=== PATIENT | male | born 1960 | race Caucasian/White ===

== ENCOUNTER 2023-05-14 16:14 | Outpatient (REF) | payer BC, SELFPAY ==
[2023-05-14 17:39] LABS: MANUAL DIFF FLAG NO
[2023-05-14 17:44] LABS: Appearance Urine Clear; Color Urine Yellow; Glucose Urine UA Negative (Negative); Leukocyte Esterase Urine Negative (Negative); Nitrite Urine Negative (Negative); PH 6.5 (5.0-9.0); Urine Blood Negative (Negative); Urine Ketones Negative (Negative); Urine Protein Negative (Neg-Trace)
[2023-05-14 17:49] LABS: Estimated Average Glucose 154 mg/dL
[2023-05-14 18:02] LABS: Basophils Percent Auto 0.5 % (0-2); Eosinophils Absolute Auto 0.1 X10*3/uL (0.0-0.4); Eosinophils Percent Auto 1.2 % (0-4); Hematocrit 46.4 % (42.0-52.0); Hemoglobin 15.9 g/dl (14.0-18.0); Imm Gran Abs Auto 0.13 X10*3/uL (0.00-0.03); Imm Gran Pct Auto 1.6 % (0.0-0.4); Lymphocytes Percent Auto 24.1 % (20-40); Mean Corpuscular HGB Conc 34.3 g/dl (31.0-36.0); Mean Corpuscular Hemoglobin 31.2 pg (27.0-33.0); Mean Corpuscular Volume 91.2 fL (80.0-98.0); Monocytes Absolute Auto 0.7 X10*3/uL (0.1-1.2); Monocytes Percent Auto 8.3 % (2-11); Neutrophils Absolute Auto 5.3 x10*3/uL (2.0-8.3); Neutrophils Percent Auto 64.3 % (45-73); Platelet Count 227 X10*3/uL (160-400); Red Blood Count 5.09 X10*6/uL (4.60-5.80); White Blood Count 8.2 X10*3/uL (4.8-10.8)
[2023-05-14 18:22] LABS: Creatinine Urine 76.95 mg/dL; Microalbum/Creatinine Ratio Ur 12.9 ug/mg cr (<30)
[2023-05-14 18:28] LABS: Alanine Aminotransferase 28 U/L (0-40); Albumin Level 4.1 g/dL (3.5-5.0); Alkaline Phosphatase 56 U/L (39-117); Anion Gap 12 (12-20); Aspartate Amino Transferase 28 U/L (5-37); Bilirubin Total 0.7 mg/dL (0.0-1.0); Blood Urea Nitrogen 19 mg/dL (9-16); Calcium 9.1 mg/dL (8.4-10.2); Carbon Dioxide 28 mmol/L (22-29); Chloride 105 mmol/L (96-108); Cholesterol 165 mg/dL (<200); Estimated Glomerular Filt Rate > 60; Glucose Fasting 98 mg/dL (60-99); HDL Cholesterol 36 mg/dL (>40); LDL Cholesterol Calculated 105 mg/dL (<100); Potassium 3.7 mmol/L (3.3-5.1); Sodium 141 mmol/L (135-145); Total Protein 6.7 g/dL (6.5-8.0); Triglycerides 122 mg/dL (<150)
[2023-05-14 18:43] LABS: Free T4 (Free Thyroxine) 0.92 ng/dL (0.71-1.85); Prostate Specific Antigen 4.08 ng/mL (<0.05-4.0); Thyroid Stimulating Hormone 11.02 uIU/mL (0.32-4.0)
== END 2023-05-14 16:15 | disposition home or self-care (01) ==
LOC: HO.CHCLDS 16:14
PROVIDERS: Visit Provider Internal Medicine
DX: Z12.5 Encounter for screening for malignant neoplasm of prostate (principal); E11.9 Type 2 diabetes mellitus without complications; I10 Essential (primary) hypertension; E03.9 Hypothyroidism, unspecified; N40.0 Benign prostatic hyperplasia without lower urinary tract symptoms
CPT/HCPCS: 36415; 80053; 80061; 81003; 82043; 82570; 83036; 84153; 84439; 84443; 85025

== ENCOUNTER 2023-07-20 09:05 | Observation (INO) | payer BC, SELFPAY ==
--- NOTE | ~2023-07-20 | CT_ITS ---
EXAMINATION: CT ANGIOGRAM HEAD CT ANGIOGRAM NECK CLINICAL INFORMATION: Dizziness. Slurred speech. COMPARISON: None available. TECHNIQUE: Initial noncontrast procurement professional logistics imaging of the head and neck was performed. Noncontrast head CT was also performed. Test bolus sequences followed by intravenous administration 70 mL of Omnipaque 350. Helical imaging was performed in the axial plane from the aortic arch to the skull vertex. Delayed postcontrast imaging of the head was also performed. The data was processed at the research technologist's workstation for generation of MIP sequences. Angled MIPs and volume rendered reformatted images were also generated at an offline 3D workstation. Stenoses are assessed in accordance with NASCET criteria unless otherwise indicated. This CT examination was performed using dose optimization techniques as appropriate, variously including the following: *Automated exposure control. *Adjustment of mA and/or kV according to patient size (this includes techniques or standardized protocols for targeted exams where dose is matched to indication/reason for exam; i.e. extremities or head). *Use of iterative reconstruction technique. DLP: 2498 mGy-cm FINDINGS: CT Head: There is no evidence of acute intracranial hemorrhage or edematous territorial infarction. Cowan-white matter differentiation is preserved. A few foci of hypoattenuation in the periventricular and deep white matter are consistent with mild microangiopathy. The ventricles are normal in morphology and size. No evidence for obstructive hydrocephalus. No abnormal mass effect or midline shift. No extra-axial fluid collections. No pathologic intra-axial enhancement. No acute soft tissue or osseous abnormalities. Mild mucosal thickening of the paranasal sinuses. The mastoid air cells and middle ear cavities are clear. CT Neck: There is a 3.4 cm heterogeneous nodule in the left thyroid lobe. The remaining cervical soft tissues are within normal limits. Congenital fusion of T3-T4. Reversal the normal cervical lordosis centered on C5-C6. Mild degenerative stepwise anterolistheses of C3-C6. Ankylosis of the left-sided C4-C5 facets. Straightening of the normal thoracic kyphosis. Moderate degenerative arthropathy of the atlantodental articulation. Facet and uncovertebral joint arthropathy leads to osseous encroachment on the neural foramina from C2-T1. CT Upper Chest: The visualized lung apices and upper mediastinum are within normal limits. Neck CTA: Aortic Arch: Normal contour and caliber with moderate calcific atherosclerotic disease. Classic 3 vessel branching pattern of the aortic arch. Great Vessel Origins: No significant stenosis of the branch origins. Right Common Carotid Artery: No focal stenosis or occlusion. Cervical Right Internal Carotid Artery: Mild calcific atherosclerotic disease of the carotid bulb and proximal internal carotid artery without flow-limiting stenosis. Left Common Carotid Artery: No focal stenosis or occlusion. Cervical Left Internal Carotid Artery: Calcific atherosclerotic disease of the carotid bulb and proximal internal carotid artery causing less than 50% stenosis. Cervical Right Vertebral Artery: No focal stenosis or occlusion. Cervical Left Vertebral Artery: Dominant. Mixed lipid rich and calcific atherosclerotic disease causes mild to moderate stenosis of the origin. No additional focal stenosis or occlusion. Brain CTA: Intracranial Internal Carotid Arteries: Calcific atherosclerotic disease of the intracranial internal carotid arteries without occlusion or flow-limiting stenosis. Right Anterior Cerebral Artery: The A1 segment is diminutive. Normal opacification of the distal QUINTON segments. Left Anterior Cerebral Artery: Normal A1 segment. Normal opacification of the distal QUINTON segments. Anterior Communicating Artery: Normal. Right Middle Cerebral Artery: Normal M1 segment of the MCA without focal stenosis or occlusion. Normal arborization of the distal segments. Left Middle Cerebral Artery: Normal M1 segment of the MCA without focal stenosis or occlusion. Normal arborization of the distal segments. Right Vertebral Artery: The V4 segment largely terminates as the posterior inferior cerebellar artery. Left Vertebral Artery: Normal V4 segment. Normal opacification of the proximal segments of the posterior inferior cerebellar artery. Basilar Artery: Normal without focal stenosis or occlusion. Normal appearance of the proximal superior cerebellar arteries. Right Posterior Cerebral Artery: Normal P1 segment. Normal opacification of the distal AOC DIRECTOR INTELLIGENCE OFFICER segments. Left Posterior Cerebral Artery: Normal P1 segment. Normal opacification of the distal AOC DIRECTOR INTELLIGENCE OFFICER segments. Normal opacification of the superior sagittal, straight, transverse, and sigmoid sinuses. CT/CT angio head neck stroke IMPRESSION: 1. No evidence of acute intracranial hemorrhage or edematous territorial infarction. Mild underlying microangiopathy. 2. CTA of the head and neck without proximal occlusion. 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 No additional flow-limiting stenoses. 3. Moderate multilevel degenerative spondyloarthropathy of the cervical spine. 4. There is a 3.4 cm nodule in the left thyroid lobe. Recommend further characterization with thyroid ultrasound. This critical result was discussed with CALLY Eagle at 14:42 on 07/20/2023 and it was ascertained that the content and urgency of the report was understood at the time of direct communication.
--- NOTE | ~2023-07-20 | MR_ITS ---
EXAMINATION: MR BRAIN WITHOUT CONTRAST CLINICAL INFORMATION: Dizziness. TIA symptoms. COMPARISON: CT from 07/20/2023. TECHNIQUE: Multiplanar, multisequence imaging of the brain was performed without contrast. FINDINGS: No diffusion abnormalities are identified to suggest an acute infarct. The ventricles are normal in size. No mass effect or midline shift is seen. Very mild scattered white matter signal changes may be due to chronic microangiopathy. No extra-axial fluid collections are seen. There is a small chronic lacunar infarct in the left cerebellar hemisphere. The brainstem is normal. The gradient refocused acquisition is normal. The craniovertebral junction, marrow signal, and midline structures are normal. The major intracranial flow voids at the level of the [place] of [place] are preserved. The dural venous sinus flow voids are maintained. The mastoid air cells are well aerated. Mild mucosal thickening noted in the paranasal sinuses. Moderate to severe left-sided facet arthropathy noted at the C2-C3 and C3-C4 levels. MR/MR head/brain wo con IMPRESSION: No acute process. Very mild scattered white matter signal changes which may be due to chronic microangiopathy. Small chronic lacunar infarct in the left cerebellar hemisphere.
[2023-07-20 09:24] VITALS: BP 139/88; PULSE 53; RESP 16; TEMP 36.6; O2SAT 100; BMI 31.5
--- NOTE | 2023-07-20 09:29 | ECG_ITS ---
Test Reason : dizziness Blood Pressure : / mmHG Vent. Rate : 057 BPM Atrial Rate : 057 BPM P-R Int : 204 ms QRS Dur : 080 ms QT Int : 458 ms P-R-T Axes : 041 000 -52 degrees QTc Int : [address] & T wave abnormality, consider inferior ischemia Abnormal ECG No previous ECGs available Referred By: Generic ED Physician Electronically Signed By:SIN LOPES
[2023-07-20 09:58] LABS: MANUAL DIFF FLAG NO
[2023-07-20 10:00] LABS: Basophils Percent Auto 0.3 % (0-2); Eosinophils Percent Auto 0.2 % (0-4); Hematocrit 45.7 % (42.0-52.0); Imm Gran Pct Auto 0.9 % (0.0-0.4); Lymphocytes Absolute Auto 1.1 X10*3/uL (1.2-4.9); Lymphocytes Percent Auto 10.3 % (20-40); Mean Corpuscular Hemoglobin 31.5 pg (27.0-33.0); Mean Platelet Volume 9.5 fL (9.4-12.4); Monocytes Absolute Auto 0.5 X10*3/uL (0.1-1.2); Monocytes Percent Auto 4.6 % (2-11); Neutrophils Absolute Auto 9.2 x10*3/uL (2.0-8.3); Neutrophils Percent Auto 83.7 % (45-73); Platelet Count 194 X10*3/uL (160-400); Red Blood Count 5.08 X10*6/uL (4.60-5.80); Red Cell Distribution Width 11.9 % (11.0-16.0); White Blood Count 10.9 X10*3/uL (4.8-10.8)
[2023-07-20 10:12] LABS: IDNOW Serial# 16C4AD1C; Influenza A Negative (Negative); Influenza B2 Negative (Negative)
[2023-07-20 10:13] LABS: COVID-19 Test Negative (Negative); IDNOW Serial# 55D5AD1C
[2023-07-20 10:37] LABS: Anion Gap 11 (12-20); Blood Urea Nitrogen 18 mg/dL (9-16); Calcium 8.8 mg/dL (8.4-10.2); Carbon Dioxide 25 mmol/L (22-29); Chloride 106 mmol/L (96-108); Creatinine Clr Calc Pharmacy 123.8; Estimated Glomerular Filt Rate > 60; Glucose Random 214 mg/dL (60-115); Potassium 4.3 mmol/L (3.3-5.1); Sodium 138 mmol/L (135-145)
[2023-07-20 12:35] VITALS: BP 148/88; PULSE 56; RESP 15; TEMP 36.5; O2SAT 99
--- NOTE | 2023-07-20 12:59 | ED_ITS ---
HPI - Neuro Symptoms/Deficit General Chief Complaint: Neuro Symptoms/Deficit Stated Complaint: confused Time Seen by Provider: 07/20/23 12:57 Source: patient and RN notes reviewed Mode of arrival: ambulatory Limitations: no limitations History of Present Illness HPI Narrative: This is a 62-year-old male, with a history of atrial fibrillation not anticoagulated, presenting to the emergency department for evaluation of acute onset dizziness which started this morning. Patient states that he woke up this morning and felt as though he was off balance. He is able to get ready go to work when 1 of his coworkers reported that he had slurred speech with diaphoresis. It is unclear how long this lasted for. He reports that the dizziness worsens with movement, however states that he is asymptomatic, during examination he did not elicit any dizziness. Denies history of similar symptoms in the past. Denies any recent head strike or falls. No headaches, fevers, chills, chest pain, shortness of breath, abdominal pain, nausea, vomiting or diarrhea. He checks his sugar and it was 169 this morning. No other complaints or concerns at this. Time: 07:00 Last Observed Normal: 14:28 Timing confirmed by: family member Relieving factors: time On Anticoagulants: No Associated symptoms: diaphoresis and vertigo Treatments Prior to Arrival: none Related Data Home Medications Medication Instructions Recorded Confirmed levothyroxine 25 mcg tablet 25 mcg PO MOTUTHFRSA@0600 07/20/23 07/20/23 levothyroxine 50 mcg capsule 50 mcg PO SUWE@0600 07/20/23 07/20/23 lisinopril 20 mg tablet 20 mg PO DAILY 07/20/23 07/20/23 metformin 500 mg tablet 500 mg PO BID 07/20/23 07/20/23 metoprolol succinate 50 mg 50 mg PO DAILY 07/20/23 07/20/23 tablet,extended release 24 hr multivitamin 1 tab PO DAILY 07/20/23 07/20/23 Previous Rx's Medication Instructions Recorded apixaban 5 mg tablet (Eliquis) 5 mg PO BID #60 tabs 07/21/23 aspirin 81 mg chewable tablet 81 mg PO DAILY #90 tabs 07/21/23 atorvastatin 40 mg tablet 40 mg PO BEDTIME #90 tabs 07/21/23 Allergies Allergy/AdvReac Type Severity Reaction Status Date / Time No Known Allergies Allergy Verified 07/20/23 09:23 Review of Systems 2 Review of Systems: Yes all other systems are reviewed and are negative Constitutional: Constitutional: Reports as per [facility] [place] Past Medical History Attestation statement: The following information was validated with the patient. Medical History (Updated 07/21/23 @ 12:39 by Juan Khan MD) Liver abscess Osteoarthritis E coli bacteremia Hyperlipidemia Acute gangrenous cholecystitis Hypertension Hypothyroidism Diabetes mellitus Atrial fibrillation Surgical History Hx of cholecystectomy Family History Family History (Updated 07/20/23 @ 16:16 by Azul Avendaño NP) Father Gastric cancer Social History Social History (Updated 07/20/23 @ 16:16 by Azul Avendaño NP) Household Members: Spouse, Family and Children Housing: House Do you presently have visiting nurse or other home services: No Alcohol intake: never Patient Tobacco Use Status: Never used Tobacco service: No Physical Exam 2 Vital Signs: Vital Signs: Last Vital Signs Temp 98.9 F 07/21/23 16:00 Pulse 64 07/21/23 16:00 Resp 16 07/21/23 16:00 BP 138/86 07/21/23 16:00 Pulse Ox 97 07/21/23 16:00 O2 Del Method Room Air 07/21/23 16:00 BMI result Body Mass Index 31.5 Const: General: cooperative, comfortable and no acute distress O rientation/consciousness: patient oriented x3 Limitations: no limitations HEENT: Head: Yes normal to inspection, Yes normocephalic and Yes atraumatic Ears: hearing grossly normal bilaterally General nose exam: Normal external nose present Face and sinus: Yes normal facial exam Mouth: Normal oral and palatal mucosa present, oropharynx normal and moist mucous membranes Throat: Yes posterior oropharynx normal Eyes: General: appearance normal, both eyes and all related structures E yelids: Yes eyelids normal Conjunctivae: conjunctivae normal Sclerae: s clerae normal Pupils: Equal, round and reactive pupils present EOM: EOMs intact bilaterally Neck: Neck: Yes normal visual inspection, Yes full ROM and Yes no lymphadenopathy Lymphatic: no lymphadenopathy noted Chest: Chest palpation & inspection: normal inspection of the chest Resp: Effort & Inspection: normal respiratory effort and able to speak in complete sentences Auscultation: clear to auscultation bilaterally, no crackles, no rales, no rhonchi and no wheezes Cardio: Rate: regular rate Rhythm: regular rhythm Heart sounds: S1 normal heart sound present and S2 normal heart sound present GI: Inspection: Yes normal to inspection Skin: General skin exam: no rashes or lesions noted Trauma: no lacerations or abrasions Wounds: no wounds Neuro: General: patient oriented x3 and moves all extremities Cranial nerves: Yes CN's II-XII intact bilaterally and Yes Equal, round and reactive pupils present Cognition (Neuro): normal cognition Gait exam (Neuro): N ormal gait present Motor exam (neuro): 5/5 motor strength present throughout and Pronator motor function not present Extrem: General: Yes normal to inspection Right upper extremity: normal to inspection Left upper extremity: normal to inspection Right lower extremity: normal to inspection Left lower extremity: normal to inspection Course Reevaluation(s) Reevaluation #1: Received call from [facility] reporting that there is no evidence of acute intracranial hemorrhage, in the CT head and neck without proximal occlusion, there is mild to moderate arthrosclerotic stenosis of the origin of the left vertebral artery. No additional flow-limiting stenosis. There was also an incidental 3.4 cm nodule in the left thyroid lobe. Discussed findings with patient and at bedside. Given episode of slurred speech and dizziness, I think it is reasonable given David Vasc score of 3, history of atrial fibrillation that he should be admitted the hospital for observation. Time: 14:56 Medications Administered Discontinued Medications Generic Name Dose Route Start Last Admin Trade Name Freq PRN Reason Stop Dose Admin Aspirin 81 mg 07/20/23 16:08 07/20/23 17:22 Aspirin 81 Mg Tab.Chew PO 07/20/23 16:09 81 mg ONCE ONE Administration Aspirin 81 mg 07/21/23 09:00 07/21/23 10:25 Aspirin 81 Mg Tab.Chew PO 81 mg DAILY PARI Administration Atorvastatin Calcium 40 mg 07/20/23 21:00 07/20/23 21:20 Atorvastatin Calcium 40 Mg Tablet PO 40 mg BEDTIME PARI Administration Enoxaparin Sodium 40 mg 07/20/23 16:30 07/20/23 19:39 Enoxaparin Sodium 40 Mg/0.4 Ml Syringe SUBCUT 40 mg Q24H PARI Administration Insulin Human Lispro 0 unit 07/20/23 16:30 07/21/23 17:03 Insulin Lispro 100 Unit/Ml 3 Ml Vial SUBCUT Not Given QIDACHS [facility] Protocol Iohexol 100 ml 07/20/23 14:13 07/20/23 14:13 Iohexol 350 Mg/Ml 100 Ml Infus..Btl IV 07/20/23 14:14 70 ml ONCE ONE Administration Sodium Chloride 3 ml 07/21/23 00:00 07/21/23 07:54 0.9 % Sodium Chloride Flush 3 Ml Syringe IVFLUSH 3 ml QSHIFT [facility] Administration Medical Decision Making Medical Decision Making [facility] Narrative: This is a 62-year-old male, history of atrial fibrillation not anticoagulated and diabetes, presenting to the emergency department for evaluation of acute onset dizziness as well as episode of slurred speech, which started this morning. On arrival, vital signs within normal limits. No neurologic deficits on examination. Differential diagnoses include TIA, CVA, ischemia, intracranial mass, vertigo, dehydration, electrolyte abnormality, hypoglycemia. Given patient has History of atrial fibrillation, will obtain CTA to rule out occlusion/ischemic stroke. Discussed case with my attending physician, Dr. Bullock, who agrees with this workup. Also recommending hospital admission for observation given her episode of slurred speech. CHADSVAS2 score of 3. NIH stroke scale 0. Plan: Labs, CTA head neck Differential Diagnosis Differential Diagnoses: The differential diagnosis associated with the presentation includes See above Admission/Observation Consideration of admission/observation: Escalation of care including admission/observation considered Given episode of slurred speech and dizziness, patient should be admitted for observation overnight Lab Data [facility] Lab Attestation statement: I reviewed the patient's lab results. No leukocytosis, stable H&H, BUN 18, creatinine 0.8, glucose 214 07/21/23 04:50 07/21/23 04:50 Labs: Lab Results 07/20/23 07/20/23 07/20/23 Range/Units 09:46 09:50 14:53 WBC 10.9 H (4.8-10.8) X10*3/uL RBC 5.08 (4.60-5.80) X10*6/uL Hgb 16.0 (14.0-18.0) g/dl Hct 45.7 (42.0-52.0) % MCV 90.0 (80.0-98.0) fL MCH 31.5 (27.0-33.0) pg MCHC 35.0 (31.0-36.0) g/dl RDW 11.9 (11.0-16.0) % Plt Count 194 (160-400) X10*3/uL MPV 9.5 (9.4-12.4) fL Immature Gran % (Auto) 0.9 H (0.0-0.4) % Neut % (Auto) 83.7 H (45-73) % Lymph % (Auto) 10.3 L (20-40) % [place] % (Auto) 4.6 (2-11) % Eos % (Auto) 0.2 (0-4) % Baso % (Auto) 0.3 (0-2) % Lymph # (Auto) 1.1 L (1.2-4.9) X10*3/uL [place] # (Auto) 0.5 (0.1-1.2) X10*3/uL Eos # (Auto) 0.0 (0.0-0.4) X10*3/uL Baso # (Auto) 0.0 (0.0-0.2) X10*3/uL Abs Immat Gran (auto) 0.10 H (0.00-0.03) X10*3/uL Absolute Neuts (auto) 9.2 H (2.0-8.3) x10*3/uL Absolute Nucleated RBC 0.000 (0.0-0.012) X10*3/uL Nucleated RBC % (auto) 0.0 (0.0-0.2) /100WBC Sodium 138 (135-145) mmol/L Potassium 4.3 (3.3-5.1) mmol/L Chloride 106 (96-108) mmol/L Carbon Dioxide 25 (22-29) mmol/L Anion Gap 11 L (12-20) BUN 18 H (9-16) mg/dL Creatinine 0.81 (0.5-1.4) mg/dL Estim Creat Clear Calc 123.8 Estimated GFR > 60 Random Glucose 214 H (60-115) mg/dL Calcium 8.8 (8.4-10.2) mg/dL Troponin I High Sens 3.7 < 2.7 (<3.5-35.0) ng/L TSH 6.50 H (0.32-4.0) uIU/mL COVID-19 (NEVA) Negative (Negative) COVID-19 Clin Com See Note Influenza Type A (GARTH) Negative (Negative) Influenza Type B (GARTH) Negative (Negative) Influenza A & B Note See Note Radiology Impression Discussion of test interpretation with radiology: I have reviewed the radiologist's reading. NIH Stroke Scale Internal: Initial- Upon Arrival Time: 13:00 Level of Consciousness: Alert Level of Consciousness Questions: Answers both questions correctly Level of Consciousness Commands: Performs both tasks correctly Best Gaze: Normal Visual: No visual loss Facial Palsy: Normal Motor Arm (Right): No drift Motor Arm (Left): No drift Motor Leg (Right): No drift Motor Leg (Left): No drift Limb Ataxia: Absent Sensory: Normal Best Language: No aphasia Dysarthia: Normal Extinction and Inattention: No abnormality Score: 0 Discharge Plan Discharge Clinical Impression: Transient ischemic attack Patient Disposition: Admitted As Inpatient Interventions: Admission Worksheet (ED) Last Done: 07/21/23 07:45 Discharge Date/Time: 07/21/23 08:09 CHADSVASC Age: <65 Gender: Male Does the patient have a history of CHF?: No Does the patient have a history of Hypertension?: No Does the patient have a history of Stroke/TIA/Thromboembolism?: No Does the patient have a history of Diabetes?: Yes CHADS VACS Score: 1
[2023-07-20 14:00] LABS: Troponin-I High Sensitivity 3.7 ng/L (<3.5-35.0)
[2023-07-20 14:07] VITALS: BP 150/97; PULSE 66; RESP 15; TEMP 36.4; O2SAT 100
[2023-07-20] MEDS: iohexoL 350 MG/ML 100 ML INFUS..BTL IV (14:13)
--- NOTE | 2023-07-20 14:43 | PC.NURSE ---
pt reports that he is mostly back to baseline. neuros intact, denies dizziness. no slurred speech or facial droop, strength equal bilaterally. denies pain
--- NOTE | 2023-07-20 15:28 | P.HPHOSP_ITS ---
History of Present Illness Date of Service: 07/20/23 Chief Complaint: dizziness, slurred speech 62-year-old male, with a history of atrial fibrillation not anticoagulated, presenting to the emergency department for evaluation of acute onset dizziness which started this morning. Patient reports that yesterday he was in his usual state of health. He woke up this morning and he felt off balance. Apparently he text his and his coworkers. His coworkers called him and noted that his speech was slurred. His coworkers called his with the information. The patient reported that he woke up this way. He was brought to the ER by family members. Denies history of similar symptoms in the past. Denies any recent head strike or falls. No headaches, recent illness, fevers, chills, chest pain, shortness of breath, abdominal pain, nausea, vomiting or diarrhea. He checkede his sugar and it was 169 this morning. Vital signs stable, all labs within acceptable limits. Patient be placed on observation for follow-up TIA symptoms Review of Systems 2 Review of Systems: Denies any recent fever chills or decrease in appetite respiratory denies any shortness of breath or cough cardiovascular denies chest pain gastrointestinal denies any dysphagia abdominal pain nausea vomiting or diarrhea genitourinary denies any dysuria frequency or hematuria musculoskeletal denies any joint pain or swelling neuropsych denies any weakness or seizures all other systems reviewed are negative [facility] Medical History (Updated 07/20/23 @ 16:22 by Azul Avendaño NP) Liver abscess Osteoarthritis E coli bacteremia Hyperlipidemia Acute gangrenous cholecystitis Hypertension Hypothyroidism Diabetes mellitus Atrial fibrillation Family History (Updated 07/20/23 @ 16:16 by Azul Avendaño NP) Father Gastric cancer Surgical History (Updated 07/20/23 @ 16:15 by Azul Avendaño NP) Hx of cholecystectomy Social History (Updated 07/20/23 @ 16:16 by Azul Avendaño NP) Alcohol intake: never Patient Tobacco Use Status: Never used Tobacco Meds Allergies Allergy/AdvReac Type Severity Reaction Status Date / Time No Known Allergies Allergy Verified 07/20/23 09:23 Home Medications Medication Instructions Recorded Confirmed Last Taken Type levothyroxine 25 mcg tablet mcg PO 07/20/23 Unknown History lisinopril 20 mg tablet 20 mg PO DAILY 07/20/23 Unknown History metformin 500 mg tablet 500 mg PO BID 07/20/23 Unknown History metoprolol succinate 50 mg 50 mg PO DAILY 07/20/23 Unknown History tablet,extended release 24 hr Physical Exam 2 Vital Signs and Narrative: Vital Signs: Last Vital Signs Temp 97.6 F 07/20/23 14:07 Pulse 66 07/20/23 14:07 Resp 15 07/20/23 14:07 BP 150/97 H 07/20/23 14:07 Pulse Ox 100 07/20/23 14:07 O2 Del Method Room Air 07/20/23 14:07 BMI result Body Mass Index 31.5 Appearing in no acute distress head is normocephalic atraumatic eyes pupils are PERRLA sclera is anicteric mouth throat mucous membranes are intact and moist neck is supple no lymphadenopathy, no JVD noted lung sounds are clear to auscultation heart regular rate rhythm, clear S1, S2 positive bowel sounds, abdomen is soft, nontender neuro patient is alert x3, no focal deficits, moving all extremities, 5/5 strength to upper and lower extremities Results Labs 07/20/23 09:50 07/20/23 09:50 Labs: Laboratory Results - last 24 hr 07/20/23 07/20/23 09:46 09:50 MCV 90.0 MCH 31.5 MCHC 35.0 RDW 11.9 Plt Count 194 MPV 9.5 Immature Gran % (Auto) 0.9 H Neut % (Auto) 83.7 H Lymph % (Auto) 10.3 L [place] % (Auto) 4.6 Eos % (Auto) 0.2 Baso % (Auto) 0.3 Lymph # (Auto) 1.1 L [place] # (Auto) 0.5 Eos # (Auto) 0.0 Baso # (Auto) 0.0 Abs Immat Gran (auto) 0.10 H Absolute Neuts (auto) 9.2 H Absolute Nucleated RBC 0.000 Nucleated RBC % (auto) 0.0 Anion Gap 11 L Estim Creat Clear Calc 123.8 Estimated GFR > 60 Random Glucose 214 H Calcium 8.8 Troponin I High Sens 3.7 COVID-19 (NEVA) Negative COVID-19 Clin Com See Note Influenza Type A (GARTH) Negative Influenza Type B (GARTH) Negative Influenza A & B Note See Note Imaging Radiologist's Impressions: Impressions Head/Neck CTA 07/20/23 14:12 IMPRESSION: 1. No evidence of acute intracranial hemorrhage or edematous territorial infarction. Mild underlying microangiopathy. 2. CTA of the head and neck without proximal occlusion. 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 No additional flow-limiting stenoses. 3. Moderate multilevel degenerative spondyloarthropathy of the cervical spine. 4. There is a 3.4 cm nodule in the left thyroid lobe. Recommend further characterization with thyroid ultrasound. This critical result was discussed with CALLY Eagle at 14:42 on 07/20/2023 and it was ascertained that the content and urgency of the report was understood at the time of direct communication. Assessment and Plan (1) TIA (transient ischemic attack): Status: Acute Plan 62-year-old man admitted for concern for TIA symptoms of dizziness and slurred speech TIA vs stroke symptoms resolved MRI ordered admit to [facility] [place] [place] asa and statin neurology consultation PT eval Sinus Bradycardia Heart rate into the 40s Will hold beta-raji Cardiology consulted Diabetes mellitus type 2 Sliding scale, ADA diet Hypertension Continue lisinopril Hypothyroidism TSH in 03.26 recheck TSH on levothyroxine at home History of atrial fibrillation David score 2 Continue metoprolol, not on anticoagulation cardiology consulted DVT prophylaxis with Lovenox Full code med rec pending OBS Quality Stroke Does the patient have a stroke diagnosis?: No VTE Prior VTE?: No VTE Risk Level:: Medical - moderate - high VTE Device Contraindication: Treatment Not Indicated VTE Drug Contraindication: N/A - Med Ordered
[2023-07-20 15:41] LABS: Troponin-I High Sensitivity < 2.7 ng/L (<3.5-35.0)
--- NOTE | 2023-07-20 16:43 | PHA.MEDREC ---
Addendum entered by Lucia Cantu RPh 07/20/23 18:33: PT TAKES LEVOTHYROXINE DIFFERENT DOSES ON DIFFERING DAYS. Original Note: Pharmacy Consult ? Medication Reconciliation Pharmacy has completed the medication reconciliation. Confirmed medications with patient. Patient reports he is taking Glucosamine chondroitin but does not know the strength. Left off the med rec because it is a PNT auto discontinuation.
[2023-07-20] MEDS: Aspirin 81 MG TAB.CHEW PO (17:22)
[2023-07-20 19:33] VITALS: BP 139/83; PULSE 63; RESP 16; TEMP 36.4; O2SAT 97
[2023-07-20 19:38] LABS: Glucose, Whole Blood 108 mg/dL (60-115)
[2023-07-20] MEDS: Enoxaparin Sodium 40 MG/0.4 ML SYRINGE SUBCUT (19:39)
--- NOTE | 2023-07-20 19:41 | PC.NURSE ---
this rn assumed care of pt. pt returned from MRI, a&ox4, respirations even and unlabored. pt set up with dinner at this time, no acute distress noted. no insulin coverage needed, pt medicated per jul.
--- NOTE | 2023-07-20 19:59 | MHC.EDTECH ---
Patient given dinner tray
[2023-07-20 21:19] LABS: Glucose, Whole Blood 192 mg/dL (60-115)
[2023-07-20] MEDS: Atorvastatin Calcium 40 MG TABLET PO (21:20)
[2023-07-20] MEDS: Insulin Lispro 100 UNIT/ML 3 ML VIAL SUBCUT (21:20)
--- NOTE | 2023-07-20 21:22 | PC.NURSE ---
pt medicated per mar, pt tolerated well with water.
[2023-07-20 23:15] VITALS: BP 157/89; PULSE 63; RESP 18; TEMP 36.8; O2SAT 99
[2023-07-21] MEDS: 0.9 % Sodium Chloride Flush 3 ML SYRINGE IVFLUSH ×2 (01:15→07:54)
[2023-07-21 03:42] VITALS: BP 129/83; PULSE 63; RESP 18; TEMP 36.8; O2SAT 98
[2023-07-21 05:21] LABS: MANUAL DIFF FLAG NO
[2023-07-21 05:29] LABS: Basophils Percent Auto 0.2 % (0-2); Eosinophils Absolute Auto 0.1 X10*3/uL (0.0-0.4); Eosinophils Percent Auto 0.8 % (0-4); Hematocrit 46.1 % (42.0-52.0); Hemoglobin 15.8 g/dl (14.0-18.0); Imm Gran Abs Auto 0.09 X10*3/uL (0.00-0.03); Lymphocytes Percent Auto 22.4 % (20-40); Mean Corpuscular HGB Conc 34.3 g/dl (31.0-36.0); Mean Corpuscular Hemoglobin 31.3 pg (27.0-33.0); Mean Corpuscular Volume 91.5 fL (80.0-98.0); Monocytes Absolute Auto 0.8 X10*3/uL (0.1-1.2); Neutrophils Percent Auto 66.6 % (45-73); Platelet Count 218 X10*3/uL (160-400); Red Blood Count 5.04 X10*6/uL (4.60-5.80); Red Cell Distribution Width 12.2 % (11.0-16.0)
[2023-07-21 05:40] LABS: Alanine Aminotransferase 26 U/L (0-40); Albumin Level 3.6 g/dL (3.5-5.0); Alkaline Phosphatase 56 U/L (39-117); Anion Gap 14 (12-20); Aspartate Amino Transferase 24 U/L (5-37); Bilirubin Total 0.7 mg/dL (0.0-1.0); Blood Urea Nitrogen 13 mg/dL (9-16); Calcium 8.9 mg/dL (8.4-10.2); Carbon Dioxide 24 mmol/L (22-29); Chloride 107 mmol/L (96-108); Creatinine Clr Calc Pharmacy 128.5; Estimated Glomerular Filt Rate > 60; Glucose Random 123 mg/dL (60-115); Potassium 3.7 mmol/L (3.3-5.1); Sodium 141 mmol/L (135-145)
--- NOTE | 2023-07-21 07:00 | CA_ITS ---
Transthoracic Echocardiogram Patient (Last, First, Middle): Dusty Quiroga, Gender: Male Date of : 1960 Age: 62 Procedure Date: 07/21/2023 Procedure Type: Transthoracic Echocardiogram [place] [facility] [place] Height: 187.96 cm Weight: 111.13 kg BSA: 2.37 m2 Heart Rate: 70 bpm BP: 129 / 83 mmHg [employer] Manager: ELIZABETH Referring MD: Azul Avendaño NP Symptoms: afib Study Quality: Fair ECG Rhythm: Sinus Conclusions: - The left ventricular systolic function is normal. The calculated ejection fraction is 60% by biplane method. - The basal inferior and basal inferoseptal segments are akinetic. - The basal inferolateral segment is hypokinetic. - No obvious valvular pathology seen on this study. Findings Left Ventricle Normal left ventricular cavity size. The left ventricular systolic function is normal. The calculated ejection fraction is 60% by biplane method. Diastolic function is normal for age. There is mild septal asymmetric hypertrophy. Wall Motion Rest Echo Findings The basal inferolateral segment is hypokinetic. The basal inferior and basal inferoseptal segments are akinetic. Right Ventricle Mildly increased right ventricular cavity size. There is normal right ventricular systolic function. Atria The left atrium is normal in size. The right atrium is mildly dilated. Aortic Valve There is a normal trileaflet aortic valve. There is no aortic valve stenosis. There is no aortic valve regurgitation. Mitral Valve There is mild anterior mitral leaflet thickening. There is no mitral valve regurgitation. There is no mitral valve stenosis. Pulmonic Valve The pulmonic valve is likely normal. Tricuspid Valve There is mild tricuspid valve regurgitation. There is no evidence of pulmonary hypertension. Great Vessels The asc aorta is normal in size. Venous The inferior vena cava is normal in size and collapses greater than 50% with inspiration. Pericardium/Pleural There is no evidence of pericardial effusion. Prior Study Comparison No significant change compared to prior study dated: 08/25/2022. (at [facility] [place]; wall motion findings previously reported). Recommendations, Care & Conclusions No obvious valvular pathology seen on this study. Measurements 2D Linear Measurements IVSd: 1.23 0.6-0.9/0.6-1.0 cm LVIDd: 4.62 3.9-5.3/4.2-5.9 cm LVIDd Index: 1.95 2.4-3.2/2.2-3.1 cm/m2 LVIDs: 2.98 2.0-3.6 cm LVPWd: 0.93 0.7-1.1 cm LA Diam: 4.30 2.7-3.8/3.0-4.0 cm LAIDs Index: 1.81 1.5-2.3 cm/m2 LV Mass: 221.72 67-162/88-224 g LV Mass Index: 93.55 43-95/49-115 g/m2 LVOT Diam: 2.60 3.0+(-)1.3 cm 2D Systolic Function EF 4C: 65.10 >55% EF 2C: 54.10 >55% EF BiP: 60.10 >55% Mitral Valve MV Pk E: 0.66 MV PK A: 0.76 MV Decel Time: 384.00 E/A: 0.90 E'Lateral: 7.15 E'Medial: 5.87 E/E' Med: 11.20 E/E' Lat: 9.20 PHT: 112.00 MVA PHT: 1.96 Decel Glenn: 1.71 Aortic Valve AoV Pk Arnold: 1.12 AoV Mn Arnold: 0.84 AoV VTI: 0.24 AoV Pk Grad: 5.00 Aov Mn Grad: 3.00 CARINE Cont.VTI: 4.32 LVOT LVOT Pk Arnold: 0.91 LVOT Mn Arnold: 0.64 LVOT VTI: 0.20 LVOT Pk Grad: 3.00 LVOT Mn Grad: 2.00 LVOT Diam: 2.60 LVOT Area: 5.31 Diastolic Function MV Pk E: 0.66 MV Pk A: 0.76 E/A: 0.90 E'Medial: 5.87 E/E' Med: 11.20 E' Laterial: 7.15 E/E' Lat: 9.20 Right Ventricle TAPSE (mm): 25.80 TVS' Arnold: 17.70 Tricuspid Valve TR Pk Arnold: 2.04 TR Pk Grad: 17.00 RA Press: 3.00 RVSP: 20.00 Great Vessels Aorta Sinus of Valsalva: 4.10 2.0-3.5 cm Ao Asc: 3.60 2.1-3.4 cm Pulmonary Valve PV Pk Arnold: 0.99 Peak PV Grad: 4.00 Updated in Other Vendor System with Status of Final Juan Khan MD electronically signed on 07/21/2023 1:27:37 PM with status of Final
[2023-07-21 07:40] LABS: Glucose, Whole Blood 158 mg/dL (60-115)
[2023-07-21] MEDS: Insulin Lispro 100 UNIT/ML 3 ML VIAL SUBCUT ×2 (07:53→12:08)
[2023-07-21 07:55] VITALS: BP 131/90; PULSE 67; RESP 16; TEMP 36.8; O2SAT 95
--- NOTE | 2023-07-21 07:55 | PC.NURSE ---
this RN resumed care of pt at this time. a&ox4. vss and up to date. nsr on the pick pack worker. pt denies pain/has no complaints at this time. cms intact. neuros intact. strength equal bilaterally. face symmetrical. no slurred speech noted. pt denies headache/lightheadedness/dizziness/change in vision. no sob/wob noted. respirations even and unlabored. insulin administered per sliding scale. admission worksheet completed. transport notified. pt patiently waiting to be transferred upstairs at this time. call prado placed within reach.
[2023-07-21 08:00] VITALS: BP 133/95; PULSE 68; RESP 16; TEMP 36.6; O2SAT 98
[2023-07-21 09:32] LABS: Estimated Average Glucose 166 mg/dL; Hemoglobin A1c % 7.4 % (<6.0)
[2023-07-21 09:56] LABS: Cholesterol 171 mg/dL (<200); HDL Cholesterol 29 mg/dL (>40); LDL Cholesterol Calculated 104 mg/dL (<100); Triglycerides 191 mg/dL (<150)
[2023-07-21] MEDS: Aspirin 81 MG TAB.CHEW PO (10:25)
--- NOTE | 2023-07-21 11:22 | MHC.CM.PN ---
Addendum entered by Luciana Webb 07/21/23 12:58: Marcellus coupon given to pt. Original Note: BELLE 07/21. Pt self-care, lives at home with his , son, daughter, [id number], and [id number]. Pts or son will transport him home at D/C. HCP declined at this time. PCP: Dr. Stu Oliva
[2023-07-21 11:44] LABS: Glucose, Whole Blood 210 mg/dL (60-115)
[2023-07-21 12:00] VITALS: BP 131/82; PULSE 76; RESP 16; TEMP 37.3; O2SAT 96
--- NOTE | 2023-07-21 12:32 | PM.CNCAR ---
History of Present Illness History of Present Illness Date of Service: 07/21/23 Chief complaint: TIA symptoms Narrative: This is a cardiology consultation regarding history of atrial fibrillation, dizziness, question of TIA. He is a veterinary physician. He states that last year, he had an episode of atrial fibrillation during a prior hospitalization at [facility]. For some reason he has not been on Eliquis. Not entirely clear what happened but it seems he did see [facility] but do not have all the details. Any case, current admissions because of an episode of dizziness. He woke up and then felt that he was off balance. Then there was also mention of setting of speech. This led to ER visit and he has been placed on observation as TIA. From a cardiac standpoint there is question of bradycardia but they obtain EKG shows the heart rate rather in the 60s. Patient stated that the dizziness was mainly when he got up and sounded rather postural. With regard to the bradycardia itself, he apparently was taking metoprolol 100 mg daily and his own speech language specialist cut back to 50 mg daily because of slow heart rates. Review of Systems Review of Systems: Yes all other systems are reviewed and are negative Constitutional: Constitutional: Reports as per HPI and Reports no additional constitutional complaints Eyes: Eyes: Reports as per HPI and Denies no additional eye complaints ENT: Denies system reviewed and no additional complaints, except as documented and Reports as per HPI Cardiovascular: Cardiovascular: Reports as per HPI, Reports no additional cardiovascular complaints, Denies acrocyanosis, Denies cool extremities, Denies chest pain, Denies leg edema, Denies lightheadedness, Denies palpitations and Denies dyspnea Respiratory: Respiratory: Reports as per HPI, Denies no additional respiratory complaints and Denies dyspnea Gastrointestinal: Gastrointestinal: Reports as per HPI and Denies no additional gastrointestinal complaints Genitourinary: Genitourinary: Reports no additional male genitourinary complaints and Reports as per HPI Musculoskeletal: Musculoskeletal: Reports no additional musculoskeletal complaints and Reports as per HPI Integumentary/Breasts: Skin/Breast: Reports system reviewed and no additional complaints, except as docu Neurologic: Reports system reviewed and no additional complaints, except as documented and Reports as per HPI Psychiatric: Psychiatric: Reports no additional psychiatric complaints and Reports as per HPI Endocrine: Endocrine: Reports no additional endocrine complaints, Reports as per HPI and Denies palpitations Hematologic/Lymphatic: Hematologic/Lymphatic: Reports no additional hematologic/lymphatic complaints and Reports as per HPI Allergic/Immunologic: Allergic/Immunologic: Reports no additional allergic/immunologic complaints and Reports as per HPI [facility] Past Medical History Medical History (Updated 07/21/23 @ 12:39 by Juan Khan MD) Liver abscess Osteoarthritis E coli bacteremia Hyperlipidemia Acute gangrenous cholecystitis Hypertension Hypothyroidism Diabetes mellitus Atrial fibrillation Family History Family History (Updated 07/20/23 @ 16:16 by Azul Avendaño NP) Father Gastric cancer Surgical History Surgical History Hx of cholecystectomy Social History Social History (Updated 07/20/23 @ 16:16 by Azul Avendaño NP) Household Members: Spouse, Family and Children Housing: House Do you presently have visiting nurse or other home services: No Alcohol intake: never Patient Tobacco Use Status: Never used Tobacco Smoked in Last 30 Days: No Use of substances other than those prescribed or required for medical reasons: No Advance Directives: No Advance Directives Information Provided: Yes Do you have thoughts of harming others: None Do you have a plan to hurt others: No Plan Nutrition Risks: No Nutritional Risk service: No Meds Allergies Allergy/AdvReac Type Severity Reaction Status Date / Time No Known Allergies Allergy Verified 07/20/23 09:23 Active Medications: Current Medications Acetaminophen (Acetaminophen 325 Mg Tablet) 650 mg PO Q6H PRN PRN Reason: Pain, Mild (Pain Scale 1-3) Aspirin (Aspirin 81 Mg Tab.Chew) 81 mg PO DAILY [facility] Last Admin: 07/21/23 10:25 Dose: 81 mg Atorvastatin Calcium (Atorvastatin Calcium 40 Mg Tablet) 40 mg PO BEDTIME [facility] Last Admin: 07/20/23 21:20 Dose: 40 mg Dextrose (Dextrose 50 % 25 Gm/50 Ml Syringe) 25 gm IVPUSH Q15M PRN; Protocol PRN Reason: per Hypoglycemia Standing Ord. Enoxaparin Sodium (Enoxaparin Sodium 40 Mg/0.4 Ml Syringe) 40 mg SUBCUT Q24H [facility] Last Admin: 07/20/23 19:39 Dose: 40 mg Glucose (Glucose Gel 15 Gm Gel..Gram.) 15 gm PO Q15M PRN; Protocol PRN Reason: per Hypoglycemia Standing Ord. Insulin Human Lispro (Insulin Lispro 100 Unit/Ml 3 Ml Vial) 0 unit SUBCUT QIDACHS [facility]; Protocol Last Admin: 07/21/23 12:08 Dose: 4 unit Ondansetron HCl (Ondansetron Hcl 4 Mg/2 Ml Vial) 4 mg IVPUSH Q8H PRN PRN Reason: Nausea and Vomiting Sodium Chloride (0.9 % Sodium Chloride Flush 3 Ml Syringe) [facility] Last Admin: 07/21/23 07:54 Dose: 3 ml Home Medications Medication Instructions Recorded Confirmed Last Taken Type ibuprofen 200 mg tablet 200 mg PO BID 07/20/23 07/20/23 07/20/23 History levothyroxine 25 mcg tablet 25 mcg PO MOTUTHFRSA@0607/20/23 07/20/23 07/20/23 History levothyroxine 50 mcg capsule 50 mcg PO SUWE@59907/20/23 07/20/23 07/20/23 History lisinopril 20 mg tablet 20 mg PO DAILY 07/20/23 07/20/23 07/20/23 History metformin 500 mg tablet 500 mg PO BID 07/20/23 07/20/23 07/20/23 History metoprolol succinate 50 mg 50 mg PO DAILY 07/20/23 07/20/23 07/20/23 History tablet,extended release 24 hr multivitamin 1 tab PO DAILY 07/20/23 07/20/23 07/20/23 History Physical Exam Vital Signs: Vital Signs: Last Vital Signs Temp 99.1 F 07/21/23 12:00 Pulse 76 07/21/23 12:00 Resp 16 07/21/23 12:00 BP 131/82 07/21/23 12:00 Pulse Ox 96 07/21/23 12:00 O2 Del Method Room Air 07/21/23 12:00 BMI result Body Mass Index 31.5 Const: General: comfortable and no acute distress Orientation/consciousness: patient oriented x3 HEENT: Other: Unremarkable Head: Yes normal to inspection Neck: Neck: Yes normal visual inspection Chest: Chest palpation & inspection: normal inspection of the chest Resp: Auscultation: clear to auscultation bilaterally Cardio: Palpation: normal PMI Heart sounds: S1 normal heart sound present, S2 normal heart sound present, no gallops, no murmurs and no rubs GI: Palpation (GI): Soft to palpation Back/Spine/Pelvis: Other: unremarkable Skin: General skin exam: no rashes or lesions noted Neuro: General: patient oriented x3 Extrem: General: Yes normal to inspection Psych: Mental Status: mental status grossly normal Objective Labs and Meds 07/21/23 04:50 07/21/23 04:50 Lab results: Laboratory Results - last 24 hr 07/20/23 07/20/23 07/20/23 09:50 14:53 19:31 WBC RBC Hgb Hct MCV MCH MCHC RDW Plt Count MPV Immature Gran % (Auto) Neut % (Auto) Lymph % (Auto) [place] % (Auto) Eos % (Auto) Baso % (Auto) Lymph # (Auto) [place] # (Auto) Eos # (Auto) Baso # (Auto) Abs Immat Gran (auto) Absolute Neuts (auto) Absolute Nucleated RBC Nucleated RBC % (auto) Sodium Potassium Chloride Carbon Dioxide Anion Gap BUN Creatinine Estim Creat Clear Calc Estimated GFR POC Glucose 108 Random Glucose Estimat Average Glucose Hemoglobin A1c % Calcium Total Bilirubin AST ALT Alkaline Phosphatase Troponin I High Sens 3.7 < 2.7 Total Protein Albumin Triglycerides Cholesterol LDL Cholesterol, Calc HDL Cholesterol TSH 6.50 H 07/20/23 07/21/23 07/21/23 21:16 04:50 07:37 WBC 9.0 RBC 5.04 Hgb 15.8 Hct 46.1 MCV 91.5 MCH 31.3 MCHC 34.3 RDW 12.2 Plt Count 218 MPV 10.0 Immature Gran % (Auto) 1.0 H Neut % (Auto) 66.6 Lymph % (Auto) 22.4 [place] % (Auto) 9.0 Eos % (Auto) 0.8 Baso % (Auto) 0.2 Lymph # (Auto) 2.0 [place] # (Auto) 0.8 Eos # (Auto) 0.1 Baso # (Auto) 0.0 Abs Immat Gran (auto) 0.09 H Absolute Neuts (auto) 6.0 Absolute Nucleated RBC 0.000 Nucleated RBC % (auto) 0.0 Sodium 141 Potassium 3.7 Chloride 107 Carbon Dioxide 24 Anion Gap 14 BUN 13 Creatinine 0.78 Estim Creat Clear Calc 128.5 Estimated GFR > 60 POC Glucose 192 H 158 H Random Glucose 123 H Estimat Average Glucose 166 Hemoglobin A1c % 7.4 H Calcium 8.9 Total Bilirubin 0.7 AST 24 ALT 26 Alkaline Phosphatase 56 Troponin I High Sens Total Protein 6.0 L Albumin 3.6 Triglycerides 191 H Cholesterol 171 LDL Cholesterol, Calc 104 H HDL Cholesterol 29 L TSH 07/21/23 11:37 WBC RBC Hgb Hct MCV MCH MCHC RDW Plt Count MPV Immature Gran % (Auto) Neut % (Auto) Lymph % (Auto) [place] % (Auto) Eos % (Auto) Baso % (Auto) Lymph # (Auto) [place] # (Auto) Eos # (Auto) Baso # (Auto) Abs Immat Gran (auto) Absolute Neuts (auto) Absolute Nucleated RBC Nucleated RBC % (auto) Sodium Potassium Chloride Carbon Dioxide Anion Gap BUN Creatinine Estim Creat Clear Calc Estimated GFR POC Glucose 210 H Random Glucose Estimat Average Glucose Hemoglobin A1c % Calcium Total Bilirubin AST ALT Alkaline Phosphatase Troponin I High Sens Total Protein Albumin Triglycerides Cholesterol LDL Cholesterol, Calc HDL Cholesterol TSH ECG Interpretation: EKG with sinus rhythm at 57/Min; inferior as well as anterolateral T inversions. Do not see that in a prior EKG at [facility]. Another EKG from [facility] from 2022 does show atrial fibrillation with slightly rapid rate. Imaging Radiologist's impression: Impressions Head/Neck CTA 07/20/23 14:12 IMPRESSION: 1. No evidence of acute intracranial hemorrhage or edematous territorial infarction. Mild underlying microangiopathy. 2. CTA of the head and neck without proximal occlusion. 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 No additional flow-limiting stenoses. 3. Moderate multilevel degenerative spondyloarthropathy of the cervical spine. 4. There is a 3.4 cm nodule in the left thyroid lobe. Recommend further characterization with thyroid ultrasound. This critical result was discussed with CALLY Eagle at 14:42 on 07/20/2023 and it was ascertained that the content and urgency of the report was understood at the time of direct communication. Brain MRI 07/20/23 19:20 IMPRESSION: No acute process. Very mild scattered white matter signal changes which may be due to chronic microangiopathy. Small chronic lacunar infarct in the left cerebellar hemisphere. Assessment and Plan (1) TIA (transient ischemic attack): Status: Acute (2) Paroxysmal atrial fibrillation: Status: Acute (3) Atherosclerotic cardiovascular disease: Status: Acute Plan MRI of the brain shows chronic microangiopathic changes. Small chronic lacunar infarct in the left cerebellar hemisphere. CTA of the head and neck without any proximal occlusion. [id number] atherosclerotic stenosis of the origin of left vertebral artery. [place] [facility] [place]LVEF 55[place]60%. Akinesis of basal inferoseptal/basal inferior wall. With regard to the history of PAF and current TIA symptoms, start Eliquis. Pros and cons discussed. He seems to be willing. With regard to the history of bradycardia, do not see anything obvious on telemetry. Okay to continue beta-blockers as there is risk of recurrence of atrial fibrillation otherwise. We discussed about this as well. He does not have any clear symptoms from the bradycardia itself. With regard to the abnormal EKG, he also has wall motion abnormalities on previous echocardiogram. He states he has had a stress test through his own speech language specialist but will need to be followed up as an outpatient. Upon discharge, he wants to follow-up with his own speech language specialist at [facility]. Procedures Date of Service Date of Service: 07/21/23
--- NOTE | 2023-07-21 13:51 | P.DS_ITS ---
DS: Providers Provider Date of Service: 07/21/23 Date of admission: 07/20/23 16:09 Primary care physician: Stu Oliva MD Consults: 07/20/23 16:03 Consult to Neurology Routine Consulting Provider: [facility] Reason for consultation: tia symptoms 07/20/23 16:20 Consult to Cardiology Routine Consulting Provider: [facility] [place] Cardiovascular Services Reason for consultation: bradycardia, afib not on ac DS: Diagnosis Discharge Diagnosis (1) TIA (transient ischemic attack): Status: Acute (2) Paroxysmal atrial fibrillation: Status: Acute (3) Atherosclerotic cardiovascular disease: Status: Acute DS: Summary Hospital Course Hospital Course: 62-year-old male, with a history of atrial fibrillation not anticoagulated, presenting to the emergency department for evaluation of acute onset dizziness which started this morning. Patient reports that yesterday he was in his usual state of health. He woke up this morning and he felt off balance. Apparently he text his and his coworkers. His coworkers called him and noted that his speech was slurred. His coworkers called his with the information. The patient reported that he woke up this way. He was brought to the ER by family members. Denies history of similar symptoms in the past. Denies any recent head strike or falls. No headaches, recent illness, fevers, chills, chest pain, shortness of breath, abdominal pain, nausea, vomiting or diarrhea. He checkede his sugar and it was 169 this morning. Vital signs stable, all labs within acceptable limits. Patient be placed on observation for follow-up TIA symptoms 62-year-old man treated for TIA like symptoms including dizziness wound slurred speech. Symptoms resolved prior to admission to the hospital. He was treated with aspirin and statin. MRI showed nothing acute but old lacunar infarcts. Does have a history of atrial fibrillation reports that he has not been on anticoagulation. Plan will be to start patient on Eliquis 5 mg twice daily. Head and neck CTA not showing any significant stenosis or occlusion. Echocardiogram with normal EF . Seen and evaluated by Neurology with rec to follow up [facility] cardiology for o/p holter if warranted. Seen evaluated by Physical therapy with no and physical therapy recommended. Patient is hemodynamically stable. No neurological deficits noted. Plan is to discharge patient home. Sinus bradycardia. EKG showing sinus bradycardia without any stat block or arrhythmia. Likely secondary to beta-raji. Metoprolol Held during hospitalization. May resume. Hypothyroidism continue levothyroxine Hypertension. Continue lisinopril Diabetes mellitus type 2. Continue metformin Time Attestation Discharge coordination time: Greater than 30 minutes Quality: Safe Use of Opioids Does Pt have an Active Cancer Diagnosis on the Problem List?: No Quality: Stroke Does the patient have a stroke diagnosis?: No Physical Exam Vital Signs: Vital Signs: Last Vital Signs Temp 99.1 F 07/21/23 12:00 Pulse 76 07/21/23 12:00 Resp 16 07/21/23 12:00 BP 131/82 07/21/23 12:00 Pulse Ox 96 07/21/23 12:00 O2 Del Method Room Air 07/21/23 12:00 BMI result Body Mass Index 31.5 Appearing in no acute distress head is normocephalic atraumatic eyes pupils are PERRLA sclera is anicteric mouth throat mucous membranes are intact and moist neck is supple no lymphadenopathy, no JVD noted lung sounds are clear to auscultation heart regular rate rhythm, clear S1, S2 positive bowel sounds, abdomen is soft, nontender neuro patient is alert x3, no focal deficits DS: Data Data Completed and Pending Labs on day of discharge: Laboratory Results - last 24 hr 07/20/23 07/20/23 07/20/23 09:50 14:53 19:31 WBC RBC Hgb Hct MCV MCH MCHC RDW Plt Count MPV Immature Gran % (Auto) Neut % (Auto) Lymph % (Auto) [place] % (Auto) Eos % (Auto) Baso % (Auto) Lymph # (Auto) [place] # (Auto) Eos # (Auto) Baso # (Auto) Abs Immat Gran (auto) Absolute Neuts (auto) Absolute Nucleated RBC Nucleated RBC % (auto) Sodium Potassium Chloride Carbon Dioxide Anion Gap BUN Creatinine Estim Creat Clear Calc Estimated GFR POC Glucose 108 Random Glucose Estimat Average Glucose Hemoglobin A1c % Calcium Total Bilirubin AST ALT Alkaline Phosphatase Troponin I High Sens 3.7 < 2.7 Total Protein Albumin Triglycerides Cholesterol LDL Cholesterol, Calc HDL Cholesterol TSH 6.50 H 07/20/23 07/21/23 07/21/23 21:16 04:50 07:37 WBC 9.0 RBC 5.04 Hgb 15.8 Hct 46.1 MCV 91.5 MCH 31.3 MCHC 34.3 RDW 12.2 Plt Count 218 MPV 10.0 Immature Gran % (Auto) 1.0 H Neut % (Auto) 66.6 Lymph % (Auto) 22.4 [place] % (Auto) 9.0 Eos % (Auto) 0.8 Baso % (Auto) 0.2 Lymph # (Auto) 2.0 [place] # (Auto) 0.8 Eos # (Auto) 0.1 Baso # (Auto) 0.0 Abs Immat Gran (auto) 0.09 H Absolute Neuts (auto) 6.0 Absolute Nucleated RBC 0.000 Nucleated RBC % (auto) 0.0 Sodium 141 Potassium 3.7 Chloride 107 Carbon Dioxide 24 Anion Gap 14 BUN 13 Creatinine 0.78 Estim Creat Clear Calc 128.5 Estimated GFR > 60 POC Glucose 192 H 158 H Random Glucose 123 H Estimat Average Glucose 166 Hemoglobin A1c % 7.4 H Calcium 8.9 Total Bilirubin 0.7 AST 24 ALT 26 Alkaline Phosphatase 56 Troponin I High Sens Total Protein 6.0 L Albumin 3.6 Triglycerides 191 H Cholesterol 171 LDL Cholesterol, Calc 104 H HDL Cholesterol 29 L TSH 07/21/23 11:37 WBC RBC Hgb Hct MCV MCH MCHC RDW Plt Count MPV Immature Gran % (Auto) Neut % (Auto) Lymph % (Auto) [place] % (Auto) Eos % (Auto) Baso % (Auto) Lymph # (Auto) [place] # (Auto) Eos # (Auto) Baso # (Auto) Abs Immat Gran (auto) Absolute Neuts (auto) Absolute Nucleated RBC Nucleated RBC % (auto) Sodium Potassium Chloride Carbon Dioxide Anion Gap BUN Creatinine Estim Creat Clear Calc Estimated GFR POC Glucose 210 H Random Glucose Estimat Average Glucose Hemoglobin A1c % Calcium Total Bilirubin AST ALT Alkaline Phosphatase Troponin I High Sens Total Protein Albumin Triglycerides Cholesterol LDL Cholesterol, Calc HDL Cholesterol TSH Discharge Plan Discharge Anticipated Discharge Date/Time: 07/21/23 13:29 Patient Disposition: Home, Self-Care Discharge Diagnosis: TIA Atrial fibrillation Referrals: Stu Oliva MD [Primary Care Provider] - 1 Week Juan Khan MD [Physician] - 1 Week Discharge Medications: New atorvastatin 40 mg Tablet 40 mg PO BEDTIME Qty: 90 0RF aspirin 81 mg Tablet,Chewable 81 mg PO DAILY Qty: 90 0RF Eliquis 5 mg tablet 5 mg PO BID Qty: 60 0RF Continued metformin 500 mg tablet 500 mg PO BID metoprolol succinate 50 mg tablet extended release 24 hr 50 mg PO DAILY lisinopril 20 mg tablet 20 mg PO DAILY levothyroxine 25 mcg tablet 25 mcg PO MOTUTHFRSA@0600 multivitamin Tablet 1 tab PO DAILY levothyroxine 50 mcg Capsule 50 mcg PO SUWE@0600 Discontinued ibuprofen 200 mg Tablet 200 mg PO BID Discharge Orders: Discharge Order (Routine); Ordered 07/21/23 Ordered By: Edith Valdivia Diet: Advance to usual diet Activity on Discharge: As tolerated Stand Alone Forms: Patient Portal Discharge page Care Plan Goals: You have been started on a new medication called Eliquis for your atrial fi brillation. Take 5 mg twice daily Health Concerns: TIA Atrial fibrillation Plan of Treatment: Follow-up with primary care provider as needed Take all medications as prescribed Assessment: See discharge summary Patient Instructions: Aspirin (By mouth), Atorvastatin (By mouth), Apixaban (By mouth) Discharge Date/Time: 07/21/23 18:43
[2023-07-21 16:00] VITALS: BP 138/86; PULSE 64; RESP 16; TEMP 37.2; O2SAT 97
[2023-07-21 16:01] LABS: Glucose, Whole Blood 143 mg/dL (60-115)
--- NOTE | 2023-07-21 17:18 | PM.NEUROCN ---
History of Present Illness Data of Consult Service Date: 07/21/23 Primary Care Provider: Stu Oliva MD [facility] Reason for consult: Dizziness and ? slurred speech This is a 62-year-old male, with a history of a single episode of atrial fibrillation For which she was seen by Dr. Peters from cardiology and her liiquids was recommended, however He is not anticoagulated because of the $1400 monthly co-pay. He presented with acute onset of dizziness which started this morningWith a feeling of being off balance wiithout true vertigo. He did not have syncope or presyncope. There was no headache. No double vision, or lateralized weakness or numbness.. Patient reports that yesterday he was in his usual state of health. He woke up this morning and he felt off balance. His coworkers called him and noted that his speech was slurred. Denies history of similar symptoms in the past. Denies any recent head strike or falls. No headaches, recent illness, fevers, chills, chest pain, shortness of breath, abdominal pain, nausea, vomiting or diarrhea. He checked his sugar and it was 169. Vital signs stable, all labs negativeThe episode is starting to clear when he came to the emergency room and within at 3 hours all symptoms had resolved. MRI brain does not show any acute infarct. Minor vascular changes in the white matter and a small remote lacunar cerebellar infarct. CTA head and neck without flow limiting stenosis. Review of Systems Review of Systems: Denies any recent fever chills or decrease in appetite respiratory denies any shortness of breath or cough cardiovascular denies chest pain gastrointestinal denies any dysphagia abdominal pain nausea vomiting or diarrhea genitourinary denies any dysuria frequency or hematuria musculoskeletal denies any joint pain or swelling neuropsych denies any weakness or seizures all other systems reviewed are negative Yes all other systems are reviewed and are negative Constitutional: Constitutional: Reports as per HPI and Reports no additional constitutional complaints Eyes: Eyes: Reports as per HPI and Denies no additional eye complaints ENT: Denies system reviewed and no additional complaints, except as documented and Reports as per HPI Cardiovascular: Cardiovascular: Reports as per HPI, Reports no additional cardiovascular complaints, Denies acrocyanosis, Denies cool extremities, Denies chest pain, Denies leg edema, Denies lightheadedness, Denies palpitations and Denies dyspnea Respiratory: Respiratory: Reports as per HPI, Denies no additional respiratory complaints and Denies dyspnea Gastrointestinal: Gastrointestinal: Reports as per HPI and Denies no additional gastrointestinal complaints Genitourinary: Genitourinary: Reports no additional male genitourinary complaints and Reports as per HPI Musculoskeletal: Musculoskeletal: Reports no additional musculoskeletal complaints and Reports as per HPI Integumentary/Breasts: Skin/Breast: Reports system reviewed and no additional complaints, except as docu Neurologic: Reports system reviewed and no additional complaints, except as documented and Reports as per HPI Psychiatric: Psychiatric: Reports no additional psychiatric complaints and Reports as per HPI Endocrine: Endocrine: Reports no additional endocrine complaints, Reports as per HPI and Denies palpitations Hematologic/Lymphatic: Hematologic/Lymphatic: Reports no additional hematologic/lymphatic complaints and Reports as per HPI Allergic/Immunologic: Allergic/Immunologic: Reports no additional allergic/immunologic complaints and Reports as per HPI PMFSH Past Medical History Medical History (Updated 07/21/23 @ 12:39 by Juan Kahn MD) Liver abscess Osteoarthritis E coli bacteremia Hyperlipidemia Acute gangrenous cholecystitis Hypertension Hypothyroidism Diabetes mellitus Atrial fibrillation Family History Family History (Updated 07/20/23 @ 16:16 by Azul Avendaño NP) Father Gastric cancer Surgical History Surgical History Hx of cholecystectomy Social History Social History (Updated 07/20/23 @ 16:16 by Azul Avendaño NP) Household Members: Spouse, Family and Children Housing: House Do you presently have visiting nurse or other home services: No Alcohol intake: never Patient Tobacco Use Status: Never used Tobacco Smoked in Last 30 Days: No Use of substances other than those prescribed or required for medical reasons: No Advance Directives: No Advance Directives Information Provided: Yes Do you have thoughts of harming others: None Do you have a plan to hurt others: No Plan Nutrition Risks: No Nutritional Risk service: No Meds Allergies Allergy/AdvReac Type Severity Reaction Status Date / Time No Known Allergies Allergy Verified 07/20/23 09:23 Active Medications: Current Medications Acetaminophen (Acetaminophen 325 Mg Tablet) 650 mg PO Q6H PRN PRN Reason: Pain, Mild (Pain Scale 1-3) Apixaban (Apixaban 5 Mg Tablet) 5 mg PO BID [facility] Aspirin (Aspirin 81 Mg Tab.Chew) 81 mg PO DAILY [facility] Last Admin: 07/21/23 10:25 Dose: 81 mg Atorvastatin Calcium (Atorvastatin Calcium 40 Mg Tablet) 40 mg PO BEDTIME [facility] Last Admin: 07/20/23 21:20 Dose: 40 mg Dextrose (Dextrose 50 % 25 Gm/50 Ml Syringe) 25 gm IVPUSH Q15M PRN; Protocol PRN Reason: per Hypoglycemia Standing Ord. Glucose (Glucose Gel 15 Gm Gel..Gram.) 15 gm PO Q15M PRN; Protocol PRN Reason: per Hypoglycemia Standing Ord. Insulin Human Lispro (Insulin Lispro 100 Unit/Ml 3 Ml Vial) 0 unit SUBCUT QIDACHS [facility]; Protocol Last Admin: 07/21/23 17:03 Dose: Not Given Ondansetron HCl (Ondansetron Hcl 4 Mg/2 Ml Vial) 4 mg IVPUSH Q8H PRN PRN Reason: Nausea and Vomiting Sodium Chloride (0.9 % Sodium Chloride Flush 3 Ml Syringe) [facility] Last Admin: 07/21/23 07:54 Dose: 3 ml Home Medications Medication Instructions Recorded Confirmed Last Taken Type levothyroxine 25 mcg tablet 25 mcg PO MOTUTHFRSA@0600 07/20/23 07/20/23 07/20/23 History levothyroxine 50 mcg capsule 50 mcg PO SUWE@0600 07/20/23 07/20/23 07/20/23 History lisinopril 20 mg tablet 20 mg PO DAILY 07/20/23 07/20/23 07/20/23 History metformin 500 mg tablet 500 mg PO BID 07/20/23 07/20/23 07/20/23 History metoprolol succinate 50 mg 50 mg PO DAILY 07/20/23 07/20/23 07/20/23 History tablet,extended release 24 hr multivitamin 1 tab PO DAILY 07/20/23 07/20/23 07/20/23 History Physical Exam Vital Signs: Vital Signs: Last Vital Signs Temp 98.9 F 07/21/23 16:00 Pulse 64 07/21/23 16:00 Resp 16 07/21/23 16:00 BP 138/86 07/21/23 16:00 Pulse Ox 97 07/21/23 16:00 O2 Del Method Room Air 07/21/23 16:00 BMI result Body Mass Index 31.5 Const: General: cooperative, comfortable and no acute distress Orientation/consciousness: patient oriented x3 Limitations: no limitations HEENT: Other: Unremarkable Head: Yes normal to inspection, Yes normocephalic and Yes atraumatic Ears: hearing grossly normal bilaterally General nose exam: Normal external nose present Face and sinus: Yes normal facial exam Mouth: Normal oral and palatal mucosa present, oropharynx normal and moist mucous membranes Throat: Yes posterior oropharynx normal Eyes: General: appearance normal, both eyes and all related structures Eyelids: Yes eyelids normal Conjunctivae: conjunctivae normal Sclerae: sclerae normal Pupils: Equal, round and reactive pupils present EOM: EOMs intact bilaterally Neck: Neck: Yes normal visual inspection, Yes full ROM and Yes no lymphadenopathy Lymphatic: no lymphadenopathy noted Chest: Chest palpation & inspection: normal inspection of the chest Resp: Effort & Inspection: normal respiratory effort and able to speak in complete sentences Auscultation: clear to auscultation bilaterally, no crackles, no rales, no rhonchi and no wheezes Cardio: Palpation: normal PMI Rate: regular rate Rhythm: regular rhythm Heart sounds: S1 normal heart sound present, S2 normal heart sound present, no gallops, no murmurs and no rubs GI: Inspection: Yes normal to inspection Palpation (GI): Soft to palpation Back/Spine/Pelvis: Other: unremarkable Skin: General skin exam: no rashes or lesions noted Trauma: no lacerations or abrasions Wounds: no wounds Neuro: Other: His speech and language functions are normal. Cognitive functions are intact. Cranial nerves II through XII are normal. Muscle tone and strength are normal in all 4 extremities. Deep tendon rreflexes symmetrical. Plantar response are flexor. Gait and coordination normal. General: patient oriented x3 and moves all extremities Cranial nerves: Yes CN's II-XII intact bilaterally and Yes Equal, round and reactive pupils present Cognition (Neuro): normal cognition Gait exam (Neuro): Normal gait present Motor exam (neuro): 5/5 motor strength present throughout and Pronator motor function not present Extrem: General: Yes normal to inspection Right upper extremity: normal to inspection Left upper extremity: normal to inspection Right lower extremity: normal to inspection Left lower extremity: normal to inspection Psych: Mental Status: mental status grossly normal Results Labs 07/21/23 04:50 07/21/23 04:50 Labs: Short CBC 07/21/23 Range/Units 04:50 WBC 9.0 (4.8-10.8) X10*3/uL Hgb 15.8 (14.0-18.0) g/dl Hct 46.1 (42.0-52.0) % Plt Count 218 (160-400) X10*3/uL BMP 07/21/23 04:50 Sodium 141 Potassium 3.7 Chloride 107 Carbon Dioxide 24 BUN 13 Creatinine 0.78 Calcium 8.9 Liver Function 07/21/23 Range/Units 04:50 Total Bilirubin 0.7 (0.0-1.0) mg/dL AST 24 (5-37) U/L ALT 26 (0-40) U/L Alkaline Phosphatase 56 (39-117) U/L Albumin 3.6 (3.5-5.0) g/dL Assessment and Plan (1) TIA (transient ischemic attack): Status: Acute Most likely explanation is a minor a TIA possibly in the posterior circulation from intermittent atrial fibrillation. Because of his past history of the same. His workup including MRI, which I have reviewed, shows no acute abnormality and shows minor microvascular changes, which are common in his age and with high blood pressure. There is no hemodynamically significant stenosis on his CTA of the head and neck. Recommendations: Outpatient followup with cardiology to see if the loop monitor might be an option for him to monitor for intermittent atrial fibrillation, in which case a stronger case for anticoagulation can be made.Continue aspirin 81 mg and he atorvastatin. (2) Paroxysmal atrial fibrillation: Status: Acute (3) Atherosclerotic cardiovascular disease: Status: Acute Plan MRI of the brain shows chronic microangiopathic changes. Small chronic lacunar infarct in the left cerebellar hemisphere. CTA of the head and neck without any proximal occlusion. 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 [place] [facility] [place] 55[place]60%. Akinesis of basal inferoseptal/basal inferior wall. With regard to the history of PAF and current TIA symptoms, start Eliquis. Pros and cons discussed. He seems to be willing. With regard to the history of bradycardia, do not see anything obvious on telemetry. Okay to continue beta-blockers as there is risk of recurrence of atrial fibrillation otherwise. We discussed about this as well. He does not have any clear symptoms from the bradycardia itself. With regard to the abnormal EKG, he also has wall motion abnormalities on previous echocardiogram. He states he has had a stress test through his own wire frame maker but will need to be followed up as an outpatient. Upon discharge, he wants to follow-up with his own wire frame maker at [facility]. Procedures Date of Service Date of Service: 07/21/23
== END 2023-07-21 18:43 | disposition home or self-care (01) ==
LOC: HO.ED 12:57 → HO.EDOVER 16:53 → HO.IMC 07-21 07:32
PROVIDERS: Physician Assistant Medical; Admitting Provider Nurse Practitioner Acute Care; Emergency Provider Emergency Medicine; PCP Internal Medicine; Visit Provider Nurse Practitioner Acute Care
DX: G45.9 Transient cerebral ischemic attack, unspecified (principal); I48.0 Paroxysmal atrial fibrillation; I25.10 Atherosclerotic heart disease of native coronary artery without angina pectoris; R42 Dizziness and giddiness; R47.81 Slurred speech; R61 Generalized hyperhidrosis; I10 Essential (primary) hypertension; E11.9 Type 2 diabetes mellitus without complications; E03.9 Hypothyroidism, unspecified; E78.5 Hyperlipidemia, unspecified; R00.1 Bradycardia, unspecified; Z79.899 Other long term (current) drug therapy; Z11.52 Encounter for screening for COVID-19
CPT/HCPCS: 36415; 70496; 70498; 70551; 80048; 80053; 80061; 82947; 83036; 84443; 84484; 85025; 87502; 87635; 93005; 93306; 96372; 97161; 99222; 99285; J1650; Q9957; Q9967

== ENCOUNTER → 2023-07-20 09:29 | Outpatient (BNV) | payer BC, SELFPAY | PROVIDERS: Admitting Provider Nurse Practitioner Acute Care; Emergency Provider Emergency Medicine; PCP Internal Medicine; Visit Provider Internal Medicine | DX: R42 Dizziness and giddiness (principal) | CPT/HCPCS: 93010 ==

== ENCOUNTER → 2023-07-20 12:36 | Outpatient (BNV) | payer BC, SELFPAY | PROVIDERS: Emergency Provider Emergency Medicine; PCP Internal Medicine; Visit Provider Nurse Practitioner Acute Care | DX: G45.9 Transient cerebral ischemic attack, unspecified (principal); I48.0 Paroxysmal atrial fibrillation; I25.10 Atherosclerotic heart disease of native coronary artery without angina pectoris | CPT/HCPCS: 99223; 99238 ==

== ENCOUNTER 2023-07-20 16:09 | Outpatient (BNV) | payer BC, SELFPAY | END 2023-07-21 07:00 | PROVIDERS: Admitting Provider Nurse Practitioner Acute Care; Emergency Provider Emergency Medicine; PCP Internal Medicine; Visit Provider Internal Medicine | DX: I36.1 Nonrheumatic tricuspid (valve) insufficiency (principal); I34.89 Other nonrheumatic mitral valve disorders | CPT/HCPCS: 93306 ==

== ENCOUNTER → 2023-07-20 16:09 | Outpatient (BNV) | payer BC, SELFPAY | PROVIDERS: Admitting Provider Nurse Practitioner Acute Care; Emergency Provider Emergency Medicine; PCP Internal Medicine; Visit Provider Internal Medicine | DX: G45.9 Transient cerebral ischemic attack, unspecified (principal); I48.0 Paroxysmal atrial fibrillation; I25.10 Atherosclerotic heart disease of native coronary artery without angina pectoris | CPT/HCPCS: 99223 ==

== ENCOUNTER → 2023-07-20 16:09 | Outpatient (BNV) | payer BC, SELFPAY | PROVIDERS: Admitting Provider Nurse Practitioner Acute Care; Emergency Provider Emergency Medicine; PCP Internal Medicine; Visit Provider Psychiatry & Neurology Neurology | DX: G45.9 Transient cerebral ischemic attack, unspecified (principal); I48.0 Paroxysmal atrial fibrillation; I25.10 Atherosclerotic heart disease of native coronary artery without angina pectoris | CPT/HCPCS: 99222 ==

== ENCOUNTER 2023-09-16 15:52 | Outpatient (REF) | payer BC, SELFPAY ==
[2023-09-16 17:40] LABS: MANUAL DIFF FLAG NO
[2023-09-16 17:44] LABS: Basophils Percent Auto 0.2 % (0-2); Eosinophils Absolute Auto 0.1 X10*3/uL (0.0-0.4); Eosinophils Percent Auto 1.2 % (0-4); Hematocrit 42.9 % (42.0-52.0); Hemoglobin 15.2 g/dl (14.0-18.0); Imm Gran Abs Auto 0.12 X10*3/uL (0.00-0.03); Imm Gran Pct Auto 1.3 % (0.0-0.4); Lymphocytes Absolute Auto 2.1 X10*3/uL (1.2-4.9); Lymphocytes Percent Auto 22.4 % (20-40); Mean Corpuscular HGB Conc 35.4 g/dl (31.0-36.0); Mean Corpuscular Hemoglobin 31.5 pg (27.0-33.0); Mean Corpuscular Volume 88.8 fL (80.0-98.0); Mean Platelet Volume 9.7 fL (9.4-12.4); Monocytes Absolute Auto 0.7 X10*3/uL (0.1-1.2); Monocytes Percent Auto 7.8 % (2-11); Neutrophils Absolute Auto 6.3 x10*3/uL (2.0-8.3); Neutrophils Percent Auto 67.1 % (45-73); Platelet Count 257 X10*3/uL (160-400); Red Blood Count 4.83 X10*6/uL (4.60-5.80); Red Cell Distribution Width 12.2 % (11.0-16.0); White Blood Count 9.3 X10*3/uL (4.8-10.8)
[2023-09-16 17:52] LABS: Estimated Average Glucose 174 mg/dL; Hemoglobin A1c % 7.7 % (<6.0)
[2023-09-16 18:20] LABS: Microalbum/Creatinine Ratio Ur 16.4 ug/mg cr (<30)
[2023-09-16 18:21] LABS: Alanine Aminotransferase 42 U/L (0-40); Albumin Level 3.9 g/dL (3.5-5.0); Alkaline Phosphatase 76 U/L (39-117); Anion Gap 11 (12-20); Aspartate Amino Transferase 33 U/L (5-37); Bilirubin Total 0.6 mg/dL (0.0-1.0); Blood Urea Nitrogen 17 mg/dL (9-16); Calcium 9.1 mg/dL (8.4-10.2); Carbon Dioxide 28 mmol/L (22-29); Chloride 104 mmol/L (96-108); Estimated Glomerular Filt Rate > 60; Glucose Random 94 mg/dL (60-115); Potassium 3.6 mmol/L (3.3-5.1); Sodium 139 mmol/L (135-145); Total Protein 6.6 g/dL (6.5-8.0)
[2023-09-16 18:38] LABS: Free T4 (Free Thyroxine) 0.83 ng/dL (0.71-1.85)
== END 2023-09-16 15:53 | disposition home or self-care (01) ==
LOC: HO.CHCLDS 15:52
PROVIDERS: Visit Provider Internal Medicine
DX: I48.0 Paroxysmal atrial fibrillation (principal); E03.9 Hypothyroidism, unspecified; E11.9 Type 2 diabetes mellitus without complications; Z86.73 Personal history of transient ischemic attack (TIA), and cerebral infarction without residual deficits
CPT/HCPCS: 36415; 80053; 82043; 82570; 83036; 84439; 84443; 85025

== ENCOUNTER 2024-01-19 12:44 | Outpatient (REF) | payer BC, SELFPAY ==
[2024-01-19 15:38] LABS: Free T4 (Free Thyroxine) 0.78 ng/dL (0.71-1.85); Thyroid Stimulating Hormone 6.61 uIU/mL (0.32-4.0)
== END 2024-01-19 12:45 | disposition home or self-care (01) ==
LOC: HO.CHCLDS 12:44
PROVIDERS: Visit Provider Internal Medicine
DX: E03.9 Hypothyroidism, unspecified (principal)
CPT/HCPCS: 36415; 84439; 84443; 84481

== ENCOUNTER 2024-03-12 10:09 | Outpatient (REF) | payer BC, SELFPAY ==
[2024-03-12 11:54] LABS: Estimated Average Glucose 174 mg/dL; Hemoglobin A1C 243.1784 umol/L; Hemoglobin A1c % 7.7 % (<6.0); Total Hemoglobin (HGBA1C) 4017.2423 umol/L
[2024-03-12 12:14] LABS: Alanine Aminotransferase 28 U/L (0-40); Albumin Level 4.1 g/dL (3.5-5.0); Alkaline Phosphatase 61 U/L (39-117); Anion Gap 11 (12-20); Aspartate Amino Transferase 25 U/L (5-37); Bilirubin Total 0.8 mg/dL (0.0-1.0); Blood Urea Nitrogen 18 mg/dL (9-16); Calcium 9.2 mg/dL (8.4-10.2); Carbon Dioxide 26 mmol/L (22-29); Chloride 106 mmol/L (96-108); Estimated Glomerular Filt Rate > 60; Glucose Random 146 mg/dL (60-115); Potassium 4.2 mmol/L (3.3-5.1); Sodium 139 mmol/L (135-145); Total Protein 6.5 g/dL (6.5-8.0)
[2024-03-12 12:30] LABS: Free T4 (Free Thyroxine) 0.82 ng/dL (0.71-1.85); Thyroid Stimulating Hormone 3.99 uIU/mL (0.32-4.0)
== END 2024-03-12 10:10 | disposition home or self-care (01) ==
LOC: HO.HMGCLDS 10:09
PROVIDERS: PCP Internal Medicine; Visit Provider Internal Medicine
DX: E03.9 Hypothyroidism, unspecified (principal); I10 Essential (primary) hypertension; E11.9 Type 2 diabetes mellitus without complications
CPT/HCPCS: 36415; 80053; 83036; 84439; 84443

== ENCOUNTER 2024-09-14 12:40 | Outpatient (AMB) | payer BC, SELFPAY ==
--- NOTE | 2024-09-14 13:03 | A.OFFPC_ITS ---
Vital Signs 09/14/24 13:08 Height 6 ft 2 in Weight 247 lb BMI 31.7 BP 116/70 Blood Pressure Location Lt brachial Position Sitting Pulse 57 Pulse Source Pulse Oximeter Temp 98 F Temp Source Axillary Pulse Oximetry (%) 98 Oxygen Delivery Method Room Air Intake Visit Reasons: Routine - see comments Food Service Supervisor Required: No Accompanied by: Self / Same As Patient Allergies No Known Allergies Allergy (Verified 09/14/24 13:04) Tobacco use date assessed: 09/14/24 Fall risk assessment: 1 Fall in past year Last assessed Fall Risk: 09/14/24 Dental Screening Dental Screen Date: 09/14/24 Did you have a dental visit in the last 12 months?: Yes Did you have a dental problem in the last 6 months where you did not have access to dental care?: No [facility] Medical History (Updated 09/14/24 @ 13:13 by Saud Ordaz MD) Atherosclerotic cardiovascular disease Paroxysmal atrial fibrillation Liver abscess Osteoarthritis E coli bacteremia Hyperlipidemia Acute gangrenous cholecystitis Hypertension Hypothyroidism Diabetes mellitus Atrial fibrillation Surgical History Hx of cholecystectomy Family History Father Gastric cancer Social History Household Members: Spouse, Family and Children Housing: House Do you presently have visiting nurse or other home services: No Alcohol intake: never Patient Tobacco Use Status: Never used Tobacco e-Cigarette/Vaping Use: Never Used service: No Current occupational status: employed Cognitive needs: No Hearing needs: No Vision needs: Yes (rx glasses) Questionnaire PHQ-9 Over the last 2 weeks, how often have you been bothered by any of the following problems? 1. Little interest or pleasure in doing things: not at all 2. Feeling down, depressed, or hopeless: not at all 3. Trouble falling or staying asleep, or sleeping too much: not at all 4. Feeling tired or having little energy: not at all 5. Poor appetite or overeating: not at all 6. Feeling bad about yourself - or that you are a failure or have let yourself or your family down: not at all 7. Trouble concentrating on things, such as reading the newspaper or watching television: not at all 8. Moving or speaking so slowly that other people could have noticed. Or the opposite - being so fidgety or restless that you have been moving around a lot more than usual: not at all 9. Thoughts that you would be better off or of hurting yourself in some way: not at all Total score: 0 Depression Screening Interpretation: Negative Depression Screening Done: Yes Source: Developed by Drs. Mac Medina, Freya Durant, Radu Salgado and colleagues, with an educational ranjith from [employer]. Thrive Questionnaire Date Thrive assessed: 09/14/24 I am a: Patient Within the past 12 months, did the food you bought not last and you didn't have the money to get more?: Never true Within the past 12 months, did you worry whether your food would run out before you got money to buy more?: Never true Do you have trouble paying for medicines?: No Do you have trouble getting transportation to medical appointments?: No Do you have trouble paying your heating and electricity bill?: No Do you have trouble taking care of your child, family member or friend?: No Do you have trouble with day-to-day activities such as bathing, preparing meals, shopping, managing finances, etc.?: No Are you currently unemployed and looking for a job?: No Are you interested in more education?: No Currently or been in a relationship where the following occur: No concerns reported THRIVE Score: 0 AUDIT C Alcohol Use Questionnaire (AUDIT-C) 1. How often do you have a drink containing alcohol?: Monthly or less 2. How many drinks containing alcohol do you have on a typical day when you are drinking?: 1 or 2 3. How often do you have six or more drinks on one occasion?: Less than monthly Total Score: 2 ROC-7 AMB Questionnaire ROC-7 Date ROC - 7 assessed: 09/14/24 Feeling nervous, anxious, or on edge: 0 = Not at all Not being able to stop or control worryin = Not at all Worrying too much about different things: 0 = Not at all Trouble relaxin = Not at all Being so restless that it is hard to sit still: 0 = Not at all Becoming easily annoyed or irritable: 0 = Not at all Feeling afraid as if something awful might happen: 0 = Not at all Total ROC-7 score (0-4 normal; 5-9 mild; 10-14 moderate; 15-21 severe): 0 Source: Developed by Drs. Mac Medina, Freya Durant, Radu Salgado and colleagues, with an educational ranjith from [employer]. Physical exam (Primary Care) Vital Signs: Last Vital Signs Temp 98 F 09/14/24 13:08 Pulse 57 09/14/24 13:08 BP 116/70 09/14/24 13:08 Pulse Ox 98 09/14/24 13:08 Oxygen Delivery Method Room Air 09/14/24 13:08 Care Plan Goal for BP management: BP is in range. BMI result Body Mass Index 31.7 BMI Assessment/Plan discussion: High Tobacco/Smoking Status: Tobacco use Status Tobacco use date assessed 09/14/24 09/14/24 13:07 Patient Tobacco Use Status Never used Tobacco 09/14/24 13:07 PHQ-9: PHQ-9 Score PHQ-9: Total score 0 09/14/24 13:07 Depression Screening Interpretation: Negative Thrive Assessment: Date of Thrive Assessment Date Thrive assessed 09/14/24 09/14/24 13:07 Currently or been in a relationship where the following occur: No concerns reported Coding Level of Care Code New Pt Level 4 (55812) Complex EM visit Add On G2211 Diagnoses Hypertension I10 Atrial fibrillation I48.91 Hyperlipidemia E78.5 Diabetes mellitus E11.9 Hypothyroidism E03.9 Assessment & Plan Assessment & Plan (1) Hypertension: Code(s): I10 - Essential (primary) hypertension Category: Medical Plan: BP is in range. Continue current meds. (2) Atrial fibrillation: Code(s): I48.91 - Unspecified atrial fibrillation Category: Medical Plan: Continue medications for anticoagulation and rate control (3) Hyperlipidemia: Code(s): E78.5 - Hyperlipidemia, unspecified Category: Medical Plan: Continue statins (4) Diabetes mellitus: Code(s): E11.9 - Type 2 diabetes mellitus without complications Category: Medical Plan: A1c to be ordered (5) Hypothyroidism: Code(s): E03.9 - Hypothyroidism, unspecified Category: Medical Plan: TSH in range Plan History of Present Illness The patient is a 63-year-old male presenting for a wellness visit, expressing a need for medication refill and assessment of ongoing health management related to several conditions. He has a confirmed history of atrial fibrillation for which he is taking anticoagulation therapy. Additionally, he manages diabetes mellitus type 2 with Metformin and controls hypertension with Lisinopril, while also taking Atorvastatin to manage hyperlipidemia. Notably, the patient underwent cholecystectomy, a procedure he believes has impacted his bowel movement pattern, which now varies in timing and consistency. He requires a refill of Levothyroxine, with his current dosage noted to have been adjusted. Previous colonoscopy screenings have been completed, with the last one occurring about two years ago. 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 - Lifestyle: Seasonal fluctuations in work activity, found perez to be typically busier than garcia. - Vision care: Patient has seen an instructor tap dancing before, considering new suggestions for eye care providers. Review of Systems - Cardiovascular: Reports atrial fibrillation. - Endocrine: Reports diabetes mellitus type 2, hypothyroidism. - Gastrointestinal: Denies current issues but reports history of cholecystectomy affecting bowel movements. - Genitourinary: Denies urinary issues, considering prostate evaluation. - Musculoskeletal: Reports previous back pain, currently resolved. - Visual: Denies current vision problems, considering consultation with an instructor tap dancing. Physical Exam General: Cooperative and healthy appearing Nutritional Appearance: Well nourished Orientation/consciousness: Patient oriented x3 Limitations: No limitations Head: Normal to inspection General: Appearance normal, both eyes and all related structures Neck: Normal visual inspection Chest: Normal palpation of entire chest wall Respiratory: Lungs clear to auscultation ormal respiratory effort Neurology: Patient oriented x3 Results Plan The plan for this visit includes refilling Levothyroxine at the recently adjusted dosage and advising the patient to verify the prescription details with the pharmacy. I initiated routine blood work and PSA testing. For vision concerns, I recommended a follow-up with an instructor tap dancing and provided the contact information of a suggested provider. The patient should continue his existing treatment regimen for atrial fibrillation, diabetes, hypertension, and hyperlipidemia, seeking further medication refills when necessary. Patient was informed and verbally consented to the use of an ambient scribe for clinic note documentation during this visit. Discussion Notes During the consultation, I discussed the patient's ongoing medical management of chronic conditions, including diabetes, hypertension, atrial fibrillation, and hyperlipidemia. We reviewed his medication regimen, ensuring the prescribed therapies remain effective. I addressed the patient's request for Levothyroxine refill, confirming the required dosage and reinforcing the importance of accurate prescription management. Preventive health measures included initiating blood work and PSA testing to evaluate general wellness and prostate health. Potential vision care follow-up was considered, with recommendations given to consult with a qualified instructor tap dancing. I confirmed with the patient that he understands these directives and agrees with the outlined plan. Patient Instructions - Take Levothyroxine as prescribed: 1.5 tablets for two days a week. - Verify with the pharmacy that the prescription for Levothyroxine is correct. - Continue current medications for atrial fibrillation, diabetes, hypertension, and hyperlipidemia. - Complete blood work and PSA testing as ordered during your next lab visit. - Schedule an appointment with an instructor tap dancing if vision problems occur. - Contact the clinic or pharmacy for any prescription refills needed.
[2024-09-14 13:08] VITALS: BP 116/70; PULSE 57; TEMP 36.6; O2SAT 98; BMI 31.7
== END 2024-09-14 13:29 | disposition home or self-care (01) ==
LOC: HO.HMCHD 12:40
PROVIDERS: PCP Internal Medicine; Visit Provider Internal Medicine
DX: I10 Essential (primary) hypertension (principal); I48.91 Unspecified atrial fibrillation; E78.5 Hyperlipidemia, unspecified; E11.9 Type 2 diabetes mellitus without complications; E03.9 Hypothyroidism, unspecified

== ENCOUNTER → 2024-09-14 12:40 | Outpatient (BNVA) | payer BC, SELFPAY | PROVIDERS: PCP Internal Medicine; Visit Provider Internal Medicine | DX: Z13.89 Encounter for screening for other disorder (principal) ==

== ENCOUNTER 2025-02-08 14:43 | Outpatient (AMB) | payer BC, SELFPAY ==
--- NOTE | 2025-02-08 14:46 | A.OFFPC_ITS ---
Vital Signs 02/08/25 14:52 Height 6 ft 2 in Weight 241 lb BMI 30.9 BP 126/78 Blood Pressure Location Lt brachial Position Sitting Respiration 18 Pulse 57 Pulse Source Pulse Oximeter Temp 97.6 F Temp Source Temporal Artery Scan Pulse Oximetry (%) 98 Oxygen Delivery Method Room Air Intake Visit Reasons: Blood Blister R Leg / [place] Expedition Guide Required: No Accompanied by: Self / Same As Patient Allergies No Known Allergies Allergy (Verified 02/08/25 14:46) Tobacco use date assessed: 09/14/24 Fall risk assessment: 2 + Falls in past year Last assessed Fall Risk: 02/08/25 Dental Screening Dental Screen Date: 02/08/25 Did you have a dental visit in the last 12 months?: No Did you have a dental problem in the last 6 months where you did not have access to dental care?: No Was dental information given to patient?: Patient has dentist HPI HPI Comments History of Present Illness Details The patient is a 64-year-old male presenting with concerns related to a blood blister on the leg. The patient describes the lesion as having been present for a couple of years. He mentioned that the blister was bandaged to prevent aggravation after scratching it, which resulted in significant bleeding on a recent occasion. The bleeding was noted to be profuse, likely exacerbated by the patient's use of Eliquis. The patient reports that the lesion has been stable in size over the years but has shown color changes, described as darker and deeper red, with a noticeable depression underneath that deflates with pressure. The patient recounts no prior trauma to the area and describes the surface as having a thin crust that formed after the bleeding episode. He denies any recent injuries or infections in that area. Given the lesion's stability and past profuse bleeding, the patient expresses concerns regarding its vascularity and potential classification as a hemangioma, based on familial observations of similar conditions. It is emphasized that the patient's sister, a retired RN, suggested it might be a hemangioma, but the patient is uncertain of its clinical presentation. Medical History: - Atrial Fibrillation - Hypertension - Type 2 Diabetes Mellitus - Hypothyroidism - Hyperlipidemia - Vascular skin lesion (suspected manuel ioma) Surgical History: - Previous cautery procedures for skin i ssues (details unspecified) Medications: - Eliquis (for atrial fibrillation) - Atorvastatin 40 mg (for hyperlipidemia ) - Levothyroxine 50 mcg (for hypothyroidi sm) - Lisinopril 20 mg (for hypertension) - Metformin 500 mg twice daily (for type 2 diabetes mellitus) - Metoprolol Succinate 50 mg (for atrial fibrillation and hypertension) Family History: - Sister with degenerative heart disease - Sister with MYH7 gene mutation - Mother suspected to have from juan jose cardial-related condition (unconfirmed) Social: - Occupation: [employer] - Reports having prior expertise with ca uterization in practice - Family context: Mention of family memb ers interacting with blood blister but no further specific details PFSH Medical History (Updated 02/08/25 @ 15:16 by Jontahon Weber MD) Abdominal hernia Lower extremity edema Skin lesion Atherosclerotic cardiovascular disease Paroxysmal atrial fibrillation Liver abscess Osteoarthritis E coli bacteremia Hyperlipidemia Acute gangrenous cholecystitis Hypertension Hypothyroidism Diabetes mellitus Atrial fibrillation Surgical History Hx of cholecystectomy Family History Father Gastric cancer Social History Household Members: Spouse, Family and Children Housing: House Do you presently have visiting nurse or other home services: No Alcohol intake: never Patient Tobacco Use Status: Never used Tobacco e-Cigarette/Vaping Use: Never Used service: No Current occupational status: employed Current occupation: [employer] Cognitive needs: No Hearing needs: No Vision needs: Yes (rx glasses) Questionnaire Thrive Questionnaire Date Thrive assessed: 09/14/24 AUDIT C Alcohol Use Questionnaire (AUDIT-C) 1. How often do you have a drink containing alcohol?: Monthly or less 2. How many drinks containing alcohol do you have on a typical day when you are drinking?: 1 or 2 Total Score: 1 ROC-7 AMB Questionnaire ROC-7 Date ROC - 7 assessed: 09/14/24 Source: Developed by Drs. Mac Medina, Freya Durant, Radu Salgado and colleagues, with an educational ranjith from [employer]. Review of Systems Const Details: - Integumentary: Reports vascular skin lesion on leg (blood blister); Denies recent infections in the area - Cardiovascular: Reports no discomfort from atrial fibrillation - Endocrine: Reports management of diabetes and thyroid disorder - Neurological: Denies recent neurological symptoms - Gastrointestinal: Reports past colonoscopy with diverticula, no polyps - Musculoskeletal: Denies new joint or muscle pain All systems reviewed & are unremarkable except as reviewed in HPI and above Physical exam (Primary Care) Vital Signs: Last Vital Signs Temp 97.6 F 02/08/25 14:52 Pulse 57 02/08/25 14:52 Resp 18 02/08/25 14:52 BP 126/78 02/08/25 14:52 Pulse Ox 98 02/08/25 14:52 Oxygen Delivery Method Room Air 02/08/25 14:52 BMI result Body Mass Index 30.9 Tobacco/Smoking Status: Tobacco use Status Tobacco use date assessed 09/14/24 02/08/25 14:48 Patient Tobacco Use Status Never used Tobacco 02/08/25 14:48 e-Cigarette/Vaping Use Never Used 02/08/25 14:48 Thrive Assessment: Date of Thrive Assessment Date Thrive assessed 09/14/24 02/08/25 14:48 Const Other: General: +Alert and oriented, Well nourished, No acute distress. Eye: Pupils are equal, round and reactive to light, Intact accommodation, Extraocular movements are intact, Normal conjunctiva, Vision unchanged. HENT: Normocephalic, Atraumatic, Tympanic membranes are clear, Normal hearing, Oral mucosa is moist, No pharyngeal erythema, Ear canals patent. Respiratory: Lungs CTA bilaterally, No wheeze, Respirations are non-labored. Cardiovascular: Regular rate, Regular rhythm, S1 auscultated, S2 auscultated, No murmur, Good pulses equal in all extremities, Normal peripheral perfusion, No edema. Gastrointestinal: Soft, Non-tender, Non-distended, Normal bowel sounds, No organomegaly. Musculoskeletal: Normal range of motion, Normal strength, No tenderness, No swelling, No deformity, Normal gait. Integumentary: Warm, Dry, Warrior, Intact. Presence of a blood blister on the leg, stable, with a scab forming over it. No signs of infection. Lesion on forehead with keratosis Neurologic: Alert, Oriented, Normal sensory, Normal motor function, No focal defects, Cranial Nerves II-XII are grossly intact, Normal deep tendon reflexes. Psychiatric: Cooperative, Appropriate mood & affect, Normal judgment. Coding Level of Care Code Est Pt Level 4 (90240) Complex EM visit Add On G2211 Diagnoses Skin lesion L98.9 Hypertension, unspecified type I10 Hypertension type: unspecified Atrial fibrillation, unspecified type I48.91 Atrial fibrillation type: unspecified Hyperlipidemia E78.5 Hyperlipidemia type: unspecified Diabetes mellitus E11.9 Diabetes mellitus type: type 2 Diabetes mellitus terminal operations supervisor insulin use: without terminal operations supervisor use Diabetes mellitus complication status: without complication Hypothyroidism E03.9 Hypothyroidism type: unspecified Lower extremity edema R60.0 Ventral hernia without obstruction or gangrene K43.9 Hernia type: ventral Obstruction and gangrene presence: without obstruction or gangrene Assessment & Plan Assessment & Plan (1) Skin lesion: Comment: - Consider referral for dermatology evaluation to assess and verify the lesion. Also has multiple other lesions of varying size and shape and one with crusting on forehead - Discussed potential interventions like cauterization if determined necessary by a animal control specialist. and possible biopsy of skin lesion Code(s): L98.9 - Disorder of the skin and subcutaneous tissue, unspecified Category: Medical (2) Hypertension: Comment: - Continue current antihypertensive regimen with Lisinopril and Metoprolol. - Address lifestyle factors contributing to blood pressure control. Code(s): I10 - Essential (primary) hypertension Category: Medical Qualifiers: Hypertension type: unspecified Qualified Code(s): I10 - Essential (primary) hypertension (3) Atrial fibrillation: Comment: - Continue Eliquis as anticoagulation therapy. - Monitor INR levels periodically due to possible bleeding risks. Code(s): I48.91 - Unspecified atrial fibrillation Category: Medical Qualifiers: Atrial fibrillation type: unspecified Qualified Code(s): I48.91 - Unspecified atrial fibrillation (4) Hyperlipidemia: Comment: - Continue Atorvastatin therapy. - Monitor lipids as part of routine blood work. Code(s): E78.5 - Hyperlipidemia, unspecified Category: Medical Qualifiers: Hyperlipidemia type: unspecified (5) Diabetes mellitus: Comment: - Continue Metformin therapy. - Recommended dietary adjustments with potential referral to a quilting machine helper for management. Code(s): E11.9 - Type 2 diabetes mellitus without complications Category: Medical Qualifiers: Diabetes mellitus type: type 2 Diabetes mellitus detention insulin use: without detention use Diabetes mellitus complication status: without complica tion (6) Hypothyroidism: Comment: - Continue Levothyroxine therapy. - Regular monitoring of thyroid function levels. Code(s): E03.9 - Hypothyroidism, unspecified Category: Medical Qualifiers: Hypothyroidism type: unspecified Plan: Health Maintenance: - Colonoscopy scheduling discussed, pending confirmation of previous findings. - Encourage dietary modifications to address hyperglycemia and hypertension. - Advised on potential preventative measures for edema. (7) Lower extremity edema: Comment: - Advised on leg elevation and potential use of compression stockings post- healing of current blister. Code(s): R60.0 - Localized edema Category: Medical (8) Abdominal hernia: Comment: - No immediate action required unless symptomatic changes occur. Code(s): K46.9 - Unspecified abdominal hernia without obstruction or gangrene Category: Medical Qualifiers: Hernia type: ventral Obstruction and gangrene presence: without obstruction or gangrene Qualified Code(s): K43.9 - Ventral hernia without obstruction or gangrene Plan During the visit, we explored various potential reasons for the patient's blood blister, including possible hemangioma. We discussed concerns regarding its vascularity given its previous bleeding episode, likely exacerbated by anticoagulation with Eliquis. I recommended a dermatology referral for evaluation and proposed possible interventions such as cauterization contingent on the animal control specialist's assessment. We touched on the importance of monitoring his atrial fibrillation, hypertension, diabetes, and thyroid disorders, maintaining current treatment regimens, and considering lifestyle interventions to optimize health outcomes. The option for dietary consultation was provided, and edema was addressed with advice on elevation and post-healing use of compression stockings. Lastly, I encouraged the patient to procure dates of past colonoscopies to determine the necessity for rescreening. Orders: Orders Prothrombin Time INR Today I48.91 - Unspecified atrial fibrillation Complete Blood Count Auto Diff Today E03.9 - Hypothyroidism, unspecified, E11.9 - Type 2 diabetes mellitus without complications, E78.5 - Hyperlipidemia, unspecified, I10 - Essential (primary) hypertension, I48.91 - Unspecified atrial fibrillation Comprehensive Met. Panel Today E03.9 - Hypothyroidism, unspecified, E11.9 - Type 2 diabetes mellitus without complications, E78.5 - Hyperlipidemia, unspecified, I10 - Essential (primary) hypertension, I48.91 - Unspecified atrial fibrillation Hemoglobin A1c Today E03.9 - Hypothyroidism, unspecified, E11.9 - Type 2 diabetes mellitus without complications, E78.5 - Hyperlipidemia, unspecified, I10 - Essential (primary) hypertension, I48.91 - Unspecified atrial fibrillation Lipid Panel Today E03.9 - Hypothyroidism, unspecified, E11.9 - Type 2 diabetes mellitus without complications, E78.5 - Hyperlipidemia, unspecified, I10 - Essential (primary) hypertension, I48.91 - Unspecified atrial fibrillation TSH reflex Free T4 Today E03.9 - Hypothyroidism, unspecified, E11.9 - Type 2 diabetes mellitus without complications, E78.5 - Hyperlipidemia, unspecified, I10 - Essential (primary) hypertension, I48.91 - Unspecified atrial fibrillation Referrals Dermatology Referral L98.9 - Disorder of the skin and subcutaneous tissue, unspecified Patient Instructions: - Schedule dermatology appointment for skin lesion evaluation. - Continue current medication regimen for atrial fibrillation, hypertension, diabetes, hypothyroidism, and hyperlipidemia. - Elevate legs to reduce edema and try compression stockings following lesion healing. - Monitor A1c levels and see a dietitian if self-managed dietary changes prove insufficient. - Find out last colonoscopy date and follow up for rescreening if necessary. - Avoid interfering with the blistered area to prevent further bleeding. - Report any significant changes in health or concerning symptoms.
[2025-02-08 14:52] VITALS: BP 126/78; PULSE 57; RESP 18; TEMP 36.4; O2SAT 98; BMI 30.9
--- OUTSIDE RECORDS SUMMARY | 2025-02-08 18:20 | XMS_ITS ---
Author Name [facility] Organization Unknown Care Team Organization Name Specialty Phone Email Start Date End Da te [facility] ALIE FERGUSON Primary Care [email or web address] 11/27/2022 01/11/2024
== END 2025-02-08 15:15 | disposition home or self-care (01) ==
LOC: HO.HMCHD 14:44
PROVIDERS: PCP Student in an Organized Health Care Education/Training Program; Visit Provider Student in an Organized Health Care Education/Training Program
DX: E11.69 Type 2 diabetes mellitus with other specified complication (principal); I48.91 Unspecified atrial fibrillation; L98.9 Disorder of the skin and subcutaneous tissue, unspecified; I10 Essential (primary) hypertension; E78.5 Hyperlipidemia, unspecified; E03.9 Hypothyroidism, unspecified; R60.0 Localized edema; K43.9 Ventral hernia without obstruction or gangrene

== ENCOUNTER 2025-02-08 14:43 | Outpatient (REF) | payer BC, SELFPAY ==
[2025-02-08 15:36] LABS: MANUAL DIFF FLAG NO
[2025-02-08 16:21] LABS: Hematocrit 43.9 % (42.0-52.0); Hemoglobin 15.1 g/dl (14.0-18.0); Imm Gran Abs Auto 0.06 X10*3/uL (0.00-0.03); Imm Gran Pct Auto 0.8 % (0.0-0.4); Lymphocytes Absolute Auto 1.9 X10*3/uL (1.2-4.9); Mean Corpuscular HGB Conc 34.4 g/dl (31.0-36.0); Mean Corpuscular Hemoglobin 31.0 pg (27.0-33.0); Mean Corpuscular Volume 90.1 fL (80.0-98.0); NRBC Abs Auto 0.000 X10*3/uL (0.0-0.012); NRBC Pct Auto 0.0 /100WBC (0.0-0.2); Platelet Count 228 X10*3/uL (160-400); Red Blood Count 4.87 X10*6/uL (4.60-5.80); White Blood Count 7.7 X10*3/uL (4.8-10.8)
[2025-02-08 16:28] LABS: INTERNATIONAL NORM RATIO 1.1 (0.9-1.1); Prothrombin Time 12.1 SEC (10.9-12.4)
[2025-02-08 16:49] LABS: Total Hemoglobin (HGBA1C) 3990.3200 umol/L
[2025-02-08 17:17] LABS: Alanine Aminotransferase 38 U/L (0-40); Albumin Level 4.3 g/dL (3.5-5.0); Alkaline Phosphatase 69 U/L (39-117); Anion Gap 12 (12-20); Aspartate Amino Transferase 38 U/L (5-37); Blood Urea Nitrogen 15 mg/dL (9-16); Calcium 9.0 mg/dL (8.4-10.2); Carbon Dioxide 29 mmol/L (22-29); Chloride 106 mmol/L (96-108); Cholesterol 109 mg/dL (<200); Estimated Glomerular Filt Rate > 60; HDL Cholesterol 32 mg/dL (>40); Potassium 3.7 mmol/L (3.3-5.1); Sodium 143 mmol/L (135-145); Total Protein 6.5 g/dL (6.5-8.0); Triglycerides 100 mg/dL (<150)
[2025-02-08 20:08] LABS: Free T4 (Free Thyroxine) 0.85 ng/dL (0.71-1.85)
== END 2025-02-08 14:44 | disposition home or self-care (01) ==
LOC: HO.LAB 14:43
PROVIDERS: PCP Student in an Organized Health Care Education/Training Program; Visit Provider Student in an Organized Health Care Education/Training Program
DX: I10 Essential (primary) hypertension (principal); R60.0 Localized edema; K43.9 Ventral hernia without obstruction or gangrene; L98.9 Disorder of the skin and subcutaneous tissue, unspecified; I48.91 Unspecified atrial fibrillation; E78.5 Hyperlipidemia, unspecified; E11.9 Type 2 diabetes mellitus without complications; E03.9 Hypothyroidism, unspecified
CPT/HCPCS: 36415; 80053; 80061; 83036; 84439; 84443; 85025; 85610

== ENCOUNTER 2025-04-26 14:07 | Outpatient (AMB) | payer BC, SELFPAY ==
--- NOTE | 2025-04-26 14:09 | MHC.PC.OV ---
Vital Signs 04/26/25 14:16 Height 6 ft 2 in Weight 241 lb BMI 30.9 BP 158/88 H Blood Pressure Location Lt brachial Position Sitting Respiration 18 Pulse 69 Pulse Source Pulse Oximeter Temp 97.6 F Temp Source Temporal Artery Scan Pulse Oximetry (%) 99 Oxygen Delivery Method Room Air Intake Visit Reasons: F/U on Lesions on Right Leg Road Train Driver Required: No Accompanied by: Self / Same As Patient Allergies No Known Allergies Allergy (Verified 04/26/25 14:10) Medication List - Last Reconciled 04/26/25 by Jonathon Weber MD acetaminophen 500 mg PO BID apixaban (Eliquis) 5 mg PO BID 90 days aspirin 81 mg PO DAILY atorvastatin 40 mg PO BEDTIME levothyroxine (Synthroid) 75 mcg PO DAILY lisinopril 20 mg PO DAILY metformin 1,000 mg PO BID 90 days metoprolol succinate ER 50 mg PO DAILY multivitamin 1 tab PO DAILY Tobacco use date assessed: 09/14/24 Last assessed Fall Risk: 04/26/25 Dental Screening Dental Screen Date: 02/08/25 HPI HPI Comments History of Present Illness Details History of Present Illness The patient is a 64 year old individual presenting for follow-up for chronic conditions and management of a healing leg wound. The patient reports that the leg wound is improving. Initially, there was a red, swollen, and hardened area of about 3-4 cm in diameter, which was painful. The lesion subsequently began to ooze, and the patient's symptoms started to improve after it drained. The patient also experienced fever and upper respiratory symptoms around the same time, though the association is unclear. The fever resolved as the wound improved. A chest painting and sealing supervisor recently picked the scab off the lesion. The patient has a history of hypothyroidism and was previously undertreated with a TSH of 7.08, leading to an increase in levothyroxine from 50 to 75 mcg. The patient reports feeling better since the dose was increased. For type 2 diabetes, the last A1c was 8.2%, and the metformin dose was subsequently increased. The patient reports taking evening medications, including Lipitor, later than scheduled but does not miss doses. Medical History: - Atrial fibrillation - Hypothyroidism - Type 2 Diabetes Mellitus - Hypertension - Hyperlipidemia - Varicose veins Medications: - Eliquis 5 mg twice a day for atrial fibrillation - Aspirin for heart disease prevention - Levothyroxine 75 mcg for hypothyroidism - Lisinopril 20 mg for hypertension - Metformin 1000 mg for type 2 diabetes mellitus - Metoprolol succinate 50 mg for atrial fibrillation - Multivitamin - Lipitor Diagnostic Results: - Previous Labs: - TSH was 7.08 - Hemoglobin A1c was 8.2% Social History - The patient reports feeling overworked and overstressed. [facility] Medical History (Updated 04/26/25 @ 14:37 by Jonathon Weber MD) Varicose ulcer of right lower extremity Abdominal hernia Lower extremity edema Skin lesion Atherosclerotic cardiovascular disease Paroxysmal atrial fibrillation Liver abscess Osteoarthritis E coli bacteremia Hyperlipidemia Acute gangrenous cholecystitis Hypertension Hypothyroidism Diabetes mellitus Atrial fibrillation Surgical History Hx of cholecystectomy Family History Father Gastric cancer Social History Household Members: Spouse, Family and Children Housing: House Do you presently have visiting nurse or other home services: No Alcohol intake: never Patient Tobacco Use Status: Never used Tobacco e-Cigarette/Vaping Use: Never Used service: No Current occupational status: employed Current occupation: [employer] Cognitive needs: No Hearing needs: No Vision needs: Yes (rx glasses) Questionnaire Thrive Questionnaire Date Thrive assessed: 09/14/24 ROC-7 AMB Questionnaire ROC-7 Date ROC - 7 assessed: 09/14/24 Source: Developed by Drs. Mac Medina, Freya Durant, Radu Salgado and colleagues, with an educational ranjith from [employer]. Review of Systems Narrative Review of Systems - General: Reports feeling better overall since the increase in thyroid medication and denies current chills. - Constitutional: Reports a history of fever which has resolved. - Integumentary: Reports an improving leg wound, which was previously red, swollen, hardened, and painful with drainage. - Respiratory: Reports recent upper respiratory symptoms. - Gastrointestinal: Reports recent diarrhea that is now improving. All systems reviewed & are unremarkable except as reviewed in HPI and above Physical exam (Primary Care) Vital Signs: Last Vital Signs Temp 97.6 F 04/26/25 14:16 Pulse 69 04/26/25 14:16 Resp 18 04/26/25 14:16 BP 158/88 H 04/26/25 14:16 Pulse Ox 99 04/26/25 14:16 Oxygen Delivery Method Room Air 04/26/25 14:16 BMI result Body Mass Index 30.9 Tobacco/Smoking Status: Tobacco use Status Tobacco use date assessed 09/14/24 04/26/25 14:19 Patient Tobacco Use Status Never used Tobacco 04/26/25 14:19 e-Cigarette/Vaping Use Never Used 04/26/25 14:19 Thrive Assessment: Date of Thrive Assessment Date Thrive assessed 09/14/24 04/26/25 14:19 Narrative Physical Exam General: Alert and oriented, Well nourished, No acute distress. Eye: Pupils are equal, round and reactive to light, Intact accommodation, Extraocular movements are intact, Normal conjunctiva, Vision unchanged. HENT: Normocephalic, Atraumatic, Tympanic membranes are clear, Normal hearing, Oral mucosa is moist, No pharyngeal erythema, Ear canals patent. Respiratory: Lungs CTA bilaterally, No wheeze, Respirations are non-labored. Cardiovascular: Regular rate, Regular rhythm, S1 auscultated, S2 auscultated, No murmur, Good pulses equal in all extremities, Normal peripheral perfusion, No edema. Gastrointestinal: Soft, Non-tender, Non-distended, Normal bowel sounds, No organomegaly. Musculoskeletal: Normal range of motion, Normal strength, No tenderness, No swelling, No deformity, Normal gait. Integumentary: Warm, Dry, [place], Intact, with an area on the leg that was previously red, swollen, and hardened, now healing with reduced swelling and redness. Neurologic: Alert, Oriented, Normal sensory, Normal motor function, No focal defects, Cranial Nerves II-XII are grossly intact, Normal deep tendon reflexes. Psychiatric: Cooperative, Appropriate mood & affect, Normal judgment. Coding Level of Care Code Est Pt Level 4 (41550) Complex visit Add On G2211 Diagnoses Varicose ulcer of right lower extremity I83.019; L97.919 Hypothyroidism, unspecified type E03.9 Hypothyroidism type: unspecified Type 2 diabetes mellitus without complication, without long-term current use of insulin E11.9 Diabetes mellitus type: type 2 Diabetes mellitus long-term insulin use: without long-term use Diabetes mellitus complication status: without complication Hypertension, unspecified type I10 Hypertension type: unspecified Atrial fibrillation, unspecified type I48.91 Atrial fibrillation type: unspecified Assessment & Plan Assessment & Plan (1) Varicose ulcer of right lower extremity: Comment: - The leg wound is healing well and does not appear to be cellulitis, so no antibiotics are indicated at this time. - The chest painting and sealing supervisor believes the issue is related to varicose veins. - An ultrasound of the leg will be ordered to evaluate for venous insufficiency. - A referral will be placed to a vascular surgeon for consultation and potential intervention, such as vein sealing, based on the ultrasound results. - The patient is advised to keep the leg elevated. Code(s): I83.019 - Varicose veins of right lower extremity with ulcer of unspecified site; L97.919 - Non-pressure chronic ulcer of unspecified part of right lower leg with unspecified severity Category: Medical (2) Hypothyroidism: Comment: - The patient was previously undertreated with a TSH of 7.08, and the levothyroxine dose was increased to 75 mcg. - The patient is feeling better on the new dose. - A repeat TSH will be checked today to ensure the level is now within the therapeutic range. Code(s): E03.9 - Hypothyroidism, unspecified Category: Medical Qualifiers: Hypothyroidism type: unspecified Qualified Code(s): E03.9 - Hypothyroidism, unspecified (3) Diabetes mellitus: Comment: - The patient's last hemoglobin A1c was 8.2%, which was elevated. - The metformin dose was previously increased. - A repeat A1c will be checked today to assess for improvement. Code(s): E11.9 - Type 2 diabetes mellitus without complications Category: Medical Qualifiers: Diabetes mellitus type: type 2 Diabetes mellitus long-term insulin use: without intermediate designer use Diabetes mellitus complication status: without complication Qualified Code(s): E11.9 - Type 2 diabetes mellitus without complications (4) Hypertension: Comment: - The patient's blood pressure was elevated in the office, which the patient attributed to stress and rushing. - Continue current management with lisinopril. Code(s): I10 - Essential (primary) hypertension Category: Medical Qualifiers: Hypertension type: unspecified Qualified Code(s): I10 - Essential (primary) hypertension (5) Atrial fibrillation: Comment: - The patient will continue the current regimen of Eliquis for anticoagulation and metoprolol for rate control. Code(s): I48.91 - Unspecified atrial fibrillation Category: Medical Qualifiers: Atrial fibrillation type: unspecified Qualified Code(s): I48.91 - Unspecified atrial fibrillation Plan: Health Maintenance: - Labs were ordered for chronic disease monitoring, including a hemoglobin A1c and TSH level. - Discussed medication adherence and advised consolidating evening medications to improve ease of use. Patient was informed and verbally consented to the use of an ambient scribe for clinic note documentation during this visit. Plan I reviewed the patient's current medications and chronic conditions, including atrial fibrillation, hypertension, type 2 diabetes, and hypothyroidism. We discussed the healing leg wound, and I noted it does not appear to be cellulitis, so antibiotics are not needed. I explained the plan to investigate the underlying varicose veins, which the chest painting and sealing supervisor also suspects, by ordering a leg ultrasound and placing a referral to a vascular surgeon for further evaluation and potential intervention, such as vein sealing. We reviewed the previous lab results, including the elevated TSH of 7.08 and A1c of 8.2%, and I explained the need to recheck these labs today to assess the response to medication changes. I confirmed that I will contact the patient with the lab results and that the patient should follow up in three months. Orders: Orders US venous insuf bilat Today I83.019 - Varicose veins of right lower extremity with ulcer of unspecified site, L97.919 - Non-pressure chronic ulcer of unspecified part of right lower leg with unspecified severity Referrals Vascular Surgery Referral I83.019 - Varicose veins of right lower extremity with ulcer of unspecified site, L97.919 - Non-pressure chronic ulcer of unspecified part of right lower leg with unspecified severity Patient Instructions: - Please go to the lab to have your blood drawn today to check your thyroid (TSH) and diabetes (A1c) levels. - Continue to monitor the wound on your leg. - If the leg wound becomes more red, swollen, painful, or starts to spread, please contact the office. - Keep your leg elevated as much as is practical for you. - To make it easier, you can take all your evening medications (Metformin, Lipitor, Eliquis) at the same time. - Someone will call you to schedule an ultrasound of your leg. - You will also receive a call from the vascular surgeon's office to schedule a consultation. - Please schedule a follow-up appointment for three months from now.
[2025-04-26 14:16] VITALS: BP 158/88; PULSE 69; RESP 18; TEMP 36.4; O2SAT 99; BMI 30.9
--- OUTSIDE RECORDS SUMMARY | 2025-04-26 17:00 | XMS_ITS | Clinical Summary ---
Author Organization [facility] ity Address [address] [place] [address] Care Team Providers Care Agronomy Professor Name Role Phone Claudia Onofre MD Primary Care Provider Allergies No known active allergies Medications apixaban (Eliquis) 5 mg tablet Take 1 tablet (5 mg total) by mouth 2 (two) times a day. 09/11/2022 Active glucosamine-chond roit-vit C-Mn (Glucosamine-Shawn droitin Complx) 500-400 mg capsule Take by mouth. Active KRILL OIL ORAL Take by mouth 1 (one) time each day. Active levothyroxine (SYNTHROID, LEVOTHROID) 25 mcg tablet Take 1 tablet (25 mcg total) by mouth 1 (one) time each day. An extra tab on Wed and Sun Active lisinopriL (PRINIVIL,ZESTRIL ) 20 mg tablet Take 1 tablet (20 mg total) by mouth 1 (one) time each day. Active metoprolol tartrate (LOPRESSOR) 50 mg tablet Take 1 tablet (50 mg total) by mouth 2 (two) times a day. 03/31/2023 Active multivit-min/iron /folic acid/K (ADULTS MULTIVITAMIN ORAL) Take by mouth. Active RED YEAST RICE EXTRACT ORAL Take by mouth 1 (one) time each day. Active Active Problems Problem Noted Date Diagnosed Date Abnormal echocardiogram 09/08/2022 Overview (05/16/2024): Last Assessment & Plan: As I noted his echocardiogram did demonstrate a wall motion abnormality in the inferoseptum and basal inferior wall. He has had no chest discomfort and is not clear if he could have coronary disease that led to this or not. I am going to schedule him for nuclear stress test. Snoring 09/08/2022 Overview (05/16/2024): Last Assessment & Plan: He does snore and he could have sleep apnea. I am going to schedule him for a nuclear stress test. Atrial fibrillation ([facility] V24, [facility] V28) 0 09/02/2022 Overview (05/16/2024): Last Assessment & Plan: As I noted this patient did have an episode of rapid atrial fibrillation when he was in the hospital. Today he is in a sinus rhythm. Not clear if this may be related to the cholecystitis or not. He was asymptomatic even with a rate was rapid. It is not clear if he is having recurrent episodes of A-fib or not. He did have an echocardiogram done noted which demonstrated normal LVEF. There was a wall motion abnormality. There was no significant valvular disease. There was moderate left ventricular hypertrophy In the left atrium was mild to moderately dilated. His chads 2 vas score is 2. I did discuss some, but not all possible risk of atrial fibrillation including an embolic event which could lead to a stroke. I spoke to him about anticoagulation given his chads 2 Vas score. I discussed Eliquis. I did discuss some, but not all possible risks of this including GI or TERMITE RENEWAL INSPECTOR bleeding. 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 After some discussion he is agreeable to starting anticoagulation. I am going to call his surgeon if he is states is okay we will then start him on 5 mg twice a day. I did speak with his surgeon and is ok to start anticoagulation. Eliquis was started.. Diabetes ([facility] V24, [facility] V28) 09/02/2022 HTN (hypertension) 09/02/2022 Hypothyroidism 09/02/2022 Encounters Date Type Department Care Team Description 02/24/2025 Telephone Gastroenterology - [address] [facility] [address] [place] [address] Jose Sharma MD from Last 3 Months Surgical History Surgery Date Site/Laterality Comments HERNIA REPAIR PROCEDURE: HISTORICAL HERNIA REPAIR/ING Medical History Medical History Date Comments HTN (hypertension) DX:HTN (hyper tension) Paroxysmal atrial fibrillati on (CMS/HCC V24, CMS/HCC V28) DX:Paroxysmal atrial fibrill ation (HCC) Hypothyroidism DX:Hypothyroidis m Type 2 diabetes mellitus wit hout complications (CMS/HCC V24, CMS/HCC V28) DX:Type 2 neo betes mellitus without complications (HCC) Family History Medical History Relation Name Comments Other: afib Brother Other: gastric cancer Father Other: hyperthyroidism Father Hyperthyroidism Mother Other: heart Mother Other: pacemaker Mother Other: afib Other 1 Heart failure Sister Other: afib Sister Relation Name Status Comments Brother Father Mother Other 1 Other 2 Alive Sister Social History Tobacco Use Types Packs/Day Years Used Date Smoking Tobacco: Never Smokeless Tobacco: Never Alcohol Use Standard Drinks/Week Comments Not Currently 0 (1 standard drink = 0.6 oz pur e alcohol) Sex and Gender Information Value Date Recorded Sex Assigned at Not on file Legal Sex Male 6:49 PM EST Gender Identity Not on file Sexual Orientation Not on file Obstetrics History Last Filed Vital Signs Vital Sign Reading Time Taken Comments Blood Pressure 128/82 10/01/2022 12:59 PM EDT Si tting L Arm Pulse 54 12/10/2022 1:24 PM EDT Temperature - - Respiratory Rate - - Oxygen Saturation - - Inhaled Oxygen Concentration - - Weight 109 kg (240 lb) 12/10/2022 1:24 PM EDT Height 188 cm (6' 2 ) 12/10/2022 1:24 PM EDT Body Mass Index 30.81 12/10/2022 1:24 PM EDT Plan of Treatment Health Maintenance Due Date Last Done Comments Colorectal Cancer Screening: Colonoscopy 1960 Diabetes: Annual Foot Exam 12/10/1969 Diabetes: Annual Retina Eye Exam 12/10/1969 DTaP,Tdap,and Td Vaccines (1 - Tdap) 12/10/1978 Pneumococcal Vaccine: 50+ Ye ars (1 of 2 - PCV) 12/10/1978 Zoster Vaccines (1 of 2) 12/10/2009 Abdominal Aortic Aneurysm (A AA) Screen 06/23/2023 Hepatitis C Screening 06/23/2023 Social Influencers of Health Screening 06/23/2023 Diabetes: Blood Sugar Contro l Test (HGBA1C) 07/10/2023 12/24/2022 Diabetes: Annual Urine Albumin-Creatinine Ratio (uACR) 12/25/2023 12/24/2022 Diabetes: Annual GFR (Glomer ular Filtration Rate) 12/25/2023 12/24/2022 Hypertension/CHF/CAD Annual BMP Blood Test 12/25/2023 12/24/2022 Depression Screening 05/25/2024 Falls Risk Assessment 12/10/2024 COVID-19 Vaccine ( - 2024-2 6 season) 2025 Influenza Vaccine (#1) 2025 Cholesterol Screening (Lipid Panel) 12/25/2027 12/24/2022 RSV Immunization Adult Patie nts (1 - 1-dose 75+ series) 12/10/2034 HIB Vaccines Aged Out No longer eligi ble based on patient's age to complete this topic HPV Vaccines Aged Out No longer eligi ble based on patient's age to complete this topic Hepatitis A Vaccines Aged Out No long er eligible based on patient's age to complete this topic Hepatitis B Vaccines Aged Out No long er eligible based on patient's age to complete this topic IPV Vaccines Aged Out No longer eligi ble based on patient's age to complete this topic MMR Vaccines Aged Out No longer eligi ble based on patient's age to complete this topic Meningococcal ACWY Vaccine Aged Out N o longer eligible based on patient's age to complete this topic Meningococcal B Vaccine Aged Out No l onger eligible based on patient's age to complete this topic RSV Immunization Patients Un hayley 20 months Aged Out No longer eligible b ased on patient's age to complete this topic Varicella Vaccines Aged Out No longer eligible based on patient's age to complete this topic Procedures Procedure Name Priority Date/Time Associated Diagnosis Comments HM URINE ALBUMIN CREATININE RATIO Routine 12/24/2022 ANNUAL BMP BLOOD TEST Routine 12/24/2022 HEMOGLOBIN A1C Routine 12/24/2022 LIPID PANEL Routine 12/24/2022 from Last 3 Months or Most Recently Relevant to Health Maintenance Results * HM Urine Albumin Creatinine Ratio (12/24/2022) Pathologist [facility] HM Urine Albumin Creatinine Ratio abstracted [facility] Provider HEALTH MAINTENANCE Final Result * Annual BMP Blood Test (12/24/2022) [facility] Annual BMP Blood Test abstracted [facility] Provider HEALTH MAINTENANCE Final Result * (ABNORMAL) Hemoglobin A1c (12/24/2022) [facility] Hemoglobin A1C 6.9(A) <=6.5 % Blood Venous blood specimen / Unknown Result [facility] Provider LAB BLOOD ORDERABLES Elisabet l Result * (ABNORMAL) Lipid panel (12/24/2022) [facility] LDL/HDL Ratio 5(A) 0 - 4 Triglycerides 112 0 - 150 mg/dL Cholesterol 156 0 - 200 mg/dL HDL 33(A) >=40 mg/dL LDL Cholesterol 101(A) 0 - 100 mg/dL Blood Venous blood specimen / Unknown [facility] Provider LAB BLOOD ORDERABLES Elisabet l Result from Last 3 Months or Most Recently Relevant to Health Maintenance Care Teams Agronomy Professor Relationship Specialty Start Date End Date Claudia Onofre MD [address] [place] [address] PCP - General 08/21/22
== END 2025-04-26 14:36 | disposition home or self-care (01) ==
LOC: HO.HMCHD 14:07
PROVIDERS: PCP Student in an Organized Health Care Education/Training Program; Visit Provider Student in an Organized Health Care Education/Training Program
DX: I83.019 Varicose veins of right lower extremity with ulcer of unspecified site (principal); L97.919 Non-pressure chronic ulcer of unspecified part of right lower leg with unspecified severity; E03.9 Hypothyroidism, unspecified; E11.9 Type 2 diabetes mellitus without complications; I10 Essential (primary) hypertension; I48.91 Unspecified atrial fibrillation

== ENCOUNTER 2025-04-26 14:07 | Outpatient (REF) | payer BC, SELFPAY ==
[2025-04-26 15:06] LABS: Hematocrit 41.9 % (42.0-52.0); Hemoglobin 14.3 g/dl (14.0-18.0); Mean Corpuscular HGB Conc 34.1 g/dl (31.0-36.0); Mean Corpuscular Hemoglobin 30.9 pg (27.0-33.0); Mean Corpuscular Volume 90.5 fL (80.0-98.0); NRBC Abs Auto 0.000 X10*3/uL (0.0-0.012); NRBC Pct Auto 0.0 /100WBC (0.0-0.2); Platelet Count 205 X10*3/uL (160-400); Red Blood Count 4.63 X10*6/uL (4.60-5.80); White Blood Count 7.6 X10*3/uL (4.8-10.8)
[2025-04-26 15:37] LABS: Appearance Urine Clear; Glucose Urine UA Negative (Negative); PH 6.5 (5.0-9.0); Specific Gravity - Urine 1.020 (1.005-1.025); UMIC TRIGGER UA YES
[2025-04-26 15:56] LABS: Alanine Aminotransferase 34 U/L (0-40); Albumin Level 4.3 g/dL (3.5-5.0); Alkaline Phosphatase 65 U/L (39-117); Anion Gap 11 (12-20); Aspartate Amino Transferase 42 U/L (5-37); Blood Urea Nitrogen 17 mg/dL (9-16); Calcium 9.1 mg/dL (8.4-10.2); Carbon Dioxide 26 mmol/L (22-29); Chloride 107 mmol/L (96-108); Cholesterol 80 mg/dL (<200); Estimated Glomerular Filt Rate > 60; HDL Cholesterol 34 mg/dL (>40); Potassium 3.6 mmol/L (3.3-5.1); Sodium 140 mmol/L (135-145); Total Protein 6.5 g/dL (6.5-8.0); Triglycerides 50 mg/dL (<150)
[2025-04-26 16:06] LABS: Hemoglobin A1C 149.7909 umol/L
[2025-04-26 16:13] LABS: Thyroid Stimulating Hormone 5.12 uIU/mL (0.32-4.0)
== END 2025-04-26 14:08 | disposition home or self-care (01) ==
LOC: HO.LAB 14:07
PROVIDERS: Internal Medicine; PCP Student in an Organized Health Care Education/Training Program; Visit Provider Student in an Organized Health Care Education/Training Program
DX: Z12.5 Encounter for screening for malignant neoplasm of prostate (principal); I10 Essential (primary) hypertension; I48.91 Unspecified atrial fibrillation; I83.019 Varicose veins of right lower extremity with ulcer of unspecified site; L97.919 Non-pressure chronic ulcer of unspecified part of right lower leg with unspecified severity; E03.9 Hypothyroidism, unspecified; E11.9 Type 2 diabetes mellitus without complications; Z79.890 Hormone replacement therapy; Z79.84 Long term (current) use of oral hypoglycemic drugs; Z79.01 Long term (current) use of anticoagulants; Z79.82 Long term (current) use of aspirin; Z79.899 Other long term (current) drug therapy
CPT/HCPCS: 36415; 80048; 80061; 80076; 81001; 83036; 84153; 84443; 85027